=== PATIENT | female | born 1990 | race Caucasian/White ===

== ENCOUNTER 2020-05-16 08:01 | Emergency (ER) | payer OTHER, SELFPAY ==
[2020-05-16 08:17] VITALS: BP 125/82; PULSE 83; RESP 16; TEMP 36.5; O2SAT 100
--- NOTE | 2020-05-16 08:32 | ED.SKABFB ---
HPI - Skin/Abscess/Foreign Bdy General Chief complaint: Skin/Abscess/Foreign Body Stated complaint: rash Time Seen by Provider: 05/16/20 08:21 Source: patient and RN notes reviewed Mode of arrival: ambulatory Limitations: no limitations History of Present Illness HPI narrative: Patient presents today complaining of a severely pruritic rash that started on her right hand 2 days ago and has since spread to her right forearm, left forearm, anterior neck, and right flank. States that she had been handling some Stra[place] prior to onset of symptoms, but has no known exposure to poison christin, sumac, oak. She has been using hydrocortisone and Benadryl without relief. MD complaint: rash Related Data Home Medications Medication Instructions Recorded Confirmed levothyroxine 05/16/20 Allergies Allergy/AdvReac Type Severity Reaction Status Date / Time prednisone Allergy Mild RASH TO Verified 10/28/16 20:31 HANDS Review of Systems Review of Systems: Narrative: CONSTITUTIONAL: Denies body aches, fever, chills, or sweats. EYES: Denies visual changes, redness, or discharge. ENT: Denies rhinorrhea, congestion, sore throat, or otalgia. CARDIOVASCULAR: Denies chest pain, palpitations, or edema. RESPIRATORY: Denies cough or dyspnea. GASTROINTESTINAL: Denies abdominal pain, nausea, vomiting, or diarrhea. GENITOURINARY: Denies dysuria or hematuria. SKIN: Denies wounds.+ Pruritic rash MUSCULOSKELETAL: Denies back pain, joint pain, or myalgia. NEUROLOGIC: Denies headache, numbness, tingling, or weakness. PSYCH: Denies depression or anxiety. [facility] Past Medical History Medical History (Updated 05/16/20 @ 08:38 by Madalyn Salmeron, [facility], ) Hypothyroidism Social History Social History Gender identity (if verbalized by the patient): Female Comments At time of signature, I have reviewed and agree with nursing past medical, surgical, social and family history unless otherwise noted. Please see nursing chart for further information. There is no relevant family history pertinent to the presenting complaint Exam Narrative: Exam Narrative: GENERAL: Well-appearing, well-nourished, and in no acute distress. HEAD: Normocephalic, atraumatic. EYES: EOMI. No redness or drainage. Conjunctivae normal. ENT: Mucous membranes pink and moist. Nares clear. NECK: Normal AROM. Supple. No lymphadenopathy. CHEST: No respiratory distress. EXTREMITIES: Normal range of motion. No edema. SKIN: Warm, dry. Capillary refill normal. Normal skin turgor. Erythematous papular rash to the right fourth finger, right proximal hand, right forearm, left forearm, large patch to the anterior neck and right flank. No active drainage. No induration, fluctuance, or other signs of cellulitis. NEURO: No focal deficits. Alert and oriented x3. Gait steady. PSYCH: Normal affect. No signs of depression or anxiety. Course Vital Signs Vital signs: Vital Signs Temperature 97.7 F 05/16/20 08:17 Pulse Rate 83 05/16/20 08:17 Respiratory Rate 16 05/16/20 08:17 Blood Pressure 125/82 05/16/20 08:17 Pulse Oximetry 100 05/16/20 08:17 Temperature 97.7 F 05/16/20 08:17 Pulse Rate 83 05/16/20 08:17 Respiratory Rate 16 05/16/20 08:17 Blood Pressure 125/82 05/16/20 08:17 Pulse Oximetry 100 05/16/20 08:17 Reviewed. Pt has been instructed to follow up with her PCP regarding her elevated blood pressure today. MDM - Skin/Abscess/Foreign Bdy Differential Diagnosis Differential diagnosis: Likely abscess of skin or subcutaneous tissue, viral exanthem, urticaria, cellulitis, eczema, impetigo and contact dermatitis Critical Care Time Critical Care Time Critical Care Time: No Discharge Plan Discharge Clinical Impression: Contact dermatitis Qualifiers: Contact dermatitis type: unspecified Contact dermatitis trigger: unspecified trigger Qualified Code(s): L25.9 - Unspecified contact dermatitis, unspecified cause Patient Dispositi
== END 2020-05-16 08:46 | disposition home or self-care (01) ==
PROVIDERS: Emergency Provider Nurse Practitioner; PCP Family Medicine
DX: L25.9 Unspecified contact dermatitis, unspecified cause (principal); E03.9 Hypothyroidism, unspecified
CPT/HCPCS: 99213; G0463

== ENCOUNTER 2024-05-22 10:19 | Outpatient (CLI) | payer BC, SELFPAY ==
--- NOTE | ~2024-05-22 | US_ITS ---
EXAMINATION: US thyroid DATE: 05/22/2024 10:32 INDICATION: Neck swelling TECHNIQUE: Multiple ultrasound images of the thyroid were obtained. COMPARISON: None. FINDINGS: The right thyroid lobe measures 4.2 x 1.5 x 1.8 cm. The left thyroid lobe measures 5.1 x 1.5 x 1.8 c m. Coarsened echotexture and heterogeneous echogenicity throughout both thyroid lobes with pseudo no dular pattern of multiple small ill-defined regions of decreased echogenicity. There are a couple lar brian and more well-defined very hypoechoic nodules which are wider than tall with smooth margins and w ithout echogenic foci in the right thyroid lobe (TI-RADS 4, moderately suspicious , FNA if >=1.5 cm, annual followup is >=1 cm) which measure 1.3 x 1.1 x 0.5 cm and 9 x 4 x 6 mm. IMPRESSION: 1. A couple TI RADS 4 nodules in the right thyroid lobe measuring up to 1.3 cm for which annual ultra sound follow-up would be recommended. 2. Diffuse heterogeneous echogenicity and coarsened echotexture in the thyroid with pseudo nodular pa ttern suggestive of Edith's thyroiditis. Reviewed, dictated and finalized at location A. IMPRESSION: 1. A couple TI RADS 4 nodules in the right thyroid lobe measuring up to 1.3 cm for which annual ultrasound follow-up would be recommended. 2. Diffuse heterogeneous echogenicity and coarsened echotexture in the thyroid with pseudo nodular pattern suggestive of Edith's thyroiditis.
== END 2024-05-22 10:20 ==
LOC: MICIMG 10:20
PROVIDERS: PCP Nurse Practitioner; Visit Provider Advanced Practice Midwife
DX: R22.1 Localized swelling, mass and lump, neck (principal); E04.2 Nontoxic multinodular goiter
CPT/HCPCS: 76536

== ENCOUNTER 2024-08-21 15:17 | Inpatient (IN) | payer BC, SELFPAY ==
[2024-08-21] VITALS (98 sets, daily range): BP systolic 78–144; BP diastolic 35–97; PULSE 59–152; TEMP 36.6–37.2; O2SAT 79–100; BMI 29.6
[2024-08-21 16:07] LABS: Basophils Percent Auto 0.2 % (0.2-1.2); Eosinophils Percent Auto 0.3 % (0-4.4); Hematocrit 38.8 % (37.0-47.0); Hemoglobin 12.7 g/dL (12.0-15.0); Immature Granulocyte Absolute 0.08 K/mm3 (0.00-0.031); Immature Granulocyte Percent A 0.7 % (0-0.5); Lymphocytes Absolute Auto 1.69 K/mm3 (0.9-3.2); Lymphocytes Percent Auto 14.5 % (18.3-44.2); Mean Corpuscular HGB Conc 32.7 g/dl (32-36); Mean Corpuscular Hemoglobin 29.5 pg (26-34); Mean Corpuscular Volume 90.2 fl (80-100); Mean Platelet Volume 10.3 fl (7.4-10.4); Monocytes Absolute Auto 0.8 K/mm3 (0.1-0.6); Monocytes Percent Auto 6.7 % (2.6-8.5); Neutrophils Absolute Auto 9.1 K/mm3 (1.3-6.7); Neutrophils Percent Auto 77.6 % (45.5-73.1); Platelet Count Result 252 k/mm3 (150-375); Red Cell Distribution Width 17.3 % (11.5-14.5); White Blood Count 11.7 K/mm3 (4.5-10.0)
[2024-08-21] MEDS: miSOPROStol 25 MCG TABLET 50 MCG BUCCAL (16:12)
--- NOTE | 2024-08-21 16:17 | LDADM ---
This patient, Andreina Alfonso, was admitted to Labor/Delivery/Recovery 104 on 08/21/24 at 15:17. Plans for labor, pain management and were discussed with patient. Patient/family oriented to hospital policies and general routines including ID bracelet, bed and alarms, visiting hours, pain management, procedures, bathroom and other care routines, personal items, smoking policy, room service/diet and guest tray routines, security routines, and visiting hours. Patient/Family are encouraged to report perceived risks to care and to ask questions if they do not understand what they are told or what they should do. See OBIX for further documentation.
[2024-08-21 16:35] LABS: Uric Acid 5.5 mg/dL (2.5-7.5)
--- NOTE | 2024-08-21 16:39 | WPDOBADMIT ---
Obstetrics - Admit Note Admission Note: record reviewed. No pertinent additions to the history and/or any subsequent changes in the physical findings that are not consistent with the expected course of the were found. Additions to the history and/or subsequent changes in the physical findings follow. admit to ld for IOL, GHTN, oligohydramnios, hypothyroidism, ovarian cyst, plan cytotec
[2024-08-21 16:44] LABS: Rapid Plasma Reagin Non-Reactive (NonReactive)
[2024-08-21 17:01] LABS: HIV 1/2 Ab P24 Ag Result Negative (Negative)
--- NOTE | 2024-08-21 17:41 | WPDANESEPP ---
Anes - Eval Pre Procedure Procedure: Labor epidural Date/Time: 08/21/24 17:41 Preop Diagnosis: Abdominal pain with contractions Pre Op Diagnosis: IOL Patient Data Age: 33 Gender: F Height: 1.7 m Weight: 85.9 kg Last Vital Signs Temp 98.9 F 08/21/24 16:09 Pulse 91 08/21/24 17:31 BP 125/79 08/21/24 17:31 Allergies Allergy/AdvReac Type Severity Reaction Status Date / Time prednisone Allergy Mild RASH TO Verified 06/16/24 09:21 HANDS Home Medications Medication Instructions Recorded Confirmed Type cholecalciferol (vitamin D3) 50 50 mcg PO DAILY #90 tabs 06/19/21 08/21/24 Rx mcg (2,000 unit) tablet mv-mn no.97-folic 180 mcg-dha 25 1 tablet PO DAILY 12/25/23 08/21/24 History mg-herb no.293 25 mg chewable tablet (Alive Daily Support ) iron succinyl-protein complex 18 18 mg PO DAILY 06/16/24 08/21/24 History mg capsule levothyroxine 125 mcg tablet 125 mcg PO QAM 06/16/24 08/21/24 History (Synthroid) Laboratory Tests 08/21/24 15:59 WBC 11.7 H K/mm3 (4.5-10.0) RBC 4.30 M/mm3 (4.2-5.4) Hgb 12.7 g/dL (12.0-15.0) Hct 38.8 % (37.0-47.0) MCV 90.2 fl (80-100) MCH 29.5 pg (26-34) MCHC 32.7 g/dl (32-36) RDW 17.3 H % (11.5-14.5) Plt Count 252 k/mm3 (150-375) MPV 10.3 fl (7.4-10.4) Immature Gran % (Auto) 0.7 H % (0-0.5) Neut % (Auto) 77.6 H % (45.5-73.1) Lymph % (Auto) 14.5 L % (18.3-44.2) [place] % (Auto) 6.7 % (2.6-8.5) Eos % (Auto) 0.3 % (0-4.4) Baso % (Auto) 0.2 % (0.2-1.2) Lymph # (Auto) 1.69 K/mm3 (0.9-3.2) [place] # (Auto) 0.8 H K/mm3 (0.1-0.6) Eos # (Auto) 0.0 K/mm3 (0-0.3) Baso # (Auto) 0.0 K/mm3 (0.0-0.1) Abs Immat Gran (auto) 0.08 H K/mm3 (0.00-0.031) Absolute Neuts (auto) 9.1 H K/mm3 (1.3-6.7) Absolute Nucleated RBC 0.000 K/mm3 (0.0-0.012) Nucleated RBC % 0.0 % (0.0-0.2) Uric Acid 5.5 mg/dL (2.5-7.5) RPR Non-reactive (NonReactive) HIV 1&2 Ab/P24 Ag 4thGn Negative (Negative) Blood Type A Positive Antibody Screen Negative : gestational age HCG: positive Patient hx anesthesia problems: none Family hx anesthesia problems: none Results Review: All pre-operative results and documents have been reviewed as part of the pre-operative evaluation. [facility] Past Medical History Medical History Gestational diabetes Hypothyroidism Missed period Oligohydramnios Overweight (BMI 25.0-29.9) and not yet delivered Family History Family History Father Thyroid disorder Mother Thyroid disorder Social History Social History Smoking status: Never smoker Second hand tobacco smoke exposure: No Alcohol intake: current Alcohol use details: Social Substance use: never Substance use type: does not use Do You Feel Safe in your Home?: Yes Lack of Transportation: No Lack of Food: Never True Current Housing: I Have Housing Concerned About Future Housing: No Difficulty Paying Gas/Electric Bills: No Difficulty Paying for Meds: No Currently Unemployed: No Education: Master's Degree or Higher Difficulty w/ Childcare or Family Care: No Gender identity (if verbalized by the patient): Female Spiritual care concerns: No Exam Day of Procedure 08/21/24 17:41 Patient weight: overweight Airway: Mallampati scale class II
[2024-08-21] MEDS: LACTATED RINGERS 1,000 ML 999 ML IV CONT (18:22)
--- NOTE | 2024-08-21 19:00 | PM.OBPNLAB ---
Pain Control Date/time seen: 08/21/24 19:00 Comments: SVE 1/70/-2 AROM small amount of light blood tinged fluid, IUPC placed, clear in catheter, discussed category 2 tracing, if does not improve discussed section, pt agrees and will continue to monitor
[2024-08-21] MEDS: ACETAMINOPHEN 500 MG TABLET 1000 MG PO (19:55)
[2024-08-21] MEDS: MAGNESIUM SULF 4 GM/WATER100ML 4 GM/100 ML BAG IVPB (19:56)
[2024-08-21] MEDS: LACTATED RINGERS 1,000 ML 75 ML IV CONT (19:57)
[2024-08-21] MEDS: OXYTOCIN 30 UNITS/NS 500 ML 30 UNITS/500 ML BAG IV CONT (20:21)
[2024-08-21 20:24] LABS: Basophils Percent Auto 0.2 % (0.2-1.2); Eosinophils Percent Auto 0.2 % (0-4.4); Hematocrit 39.6 % (37.0-47.0); Hemoglobin 12.5 g/dL (12.0-15.0); Immature Granulocyte Absolute 0.08 K/mm3 (0.00-0.031); Immature Granulocyte Percent A 0.7 % (0-0.5); Lymphocytes Absolute Auto 1.83 K/mm3 (0.9-3.2); Lymphocytes Percent Auto 15.1 % (18.3-44.2); Mean Corpuscular HGB Conc 31.6 g/dl (32-36); Mean Corpuscular Hemoglobin 29.1 pg (26-34); Mean Corpuscular Volume 92.1 fl (80-100); Mean Platelet Volume 10.5 fl (7.4-10.4); Monocytes Absolute Auto 0.9 K/mm3 (0.1-0.6); Neutrophils Absolute Auto 9.3 K/mm3 (1.3-6.7); Neutrophils Percent Auto 76.8 % (45.5-73.1); Platelet Count Result 256 k/mm3 (150-375); Red Cell Distribution Width 17.6 % (11.5-14.5); White Blood Count 12.1 K/mm3 (4.5-10.0)
[2024-08-21 20:46] LABS: Alanine Aminotransferase 12 U/L (6-35); Albumin Level 3.3 g/dL (3.5-5.1); Alkaline Phosphatase 253 U/L (38-126); Anion Gap 7 mmol/L (4-12); Aspartate Amino Transferase 25 U/L (14-36); Bilirubin,Total 0.5 mg/dL (0.2-1.3); Blood Urea Nitrogen 6 mg/dL (7-17); Calcium 8.3 mg/dL (8.4-10.2); Carbon Dioxide 21 mmol/L (22-30); Chloride 91 mmol/L (98-107); Estimated CRCL calculation 181 ml/min; Estimated Glomerular Filt Rate > 60; Glucose 77 mg/dL (65-110); Potassium 3.4 mmol/L (3.4-5.0); Sodium 119 mmol/L (137-145)
[2024-08-21] MEDS: MAGNESIUM SULF 20GM/WATER500ML 500 ML 50 MG IV CONT (21:31)
[2024-08-21] MEDS: SODIUM CHLORIDE 0.9% IV 1,000 ML 75 ML IV CONT (21:31)
[2024-08-21] MEDS: PHENYLEPHRINE 1,000 MCG/10 ML SYRINGE 100 MCG IV PUSH (21:44)
[2024-08-21] MEDS: ONDANSETRON INJ 4 MG/2 ML VIAL IV PUSH (21:44)
[2024-08-22] VITALS (153 sets, daily range): BP systolic 79–133; BP diastolic 54–89; PULSE 76–200; RESP 14–20; TEMP 36.2–38.2; O2SAT 84–100
[2024-08-22] MEDS: miSOPROStol 200 MCG TABLET 1000 MCG (01:19)
[2024-08-22] MEDS: OXYTOCIN 30 UNITS/NS 500 ML 30 UNITS/500 ML BAG 125 UNITS IV CONT (01:37)
--- NOTE | 2024-08-22 01:42 | PM.OBPRVD ---
OB - Vaginal Delivery Note Procedure Delivery date: 08/22/24 Events: Preeclampsia w severe features Induction method: AROM, Per Misoprostol Protocol and Per Pitocin Protocol Delivery monitor: External FHT and Internal Uterine Route of delivery: Episiotomy description: None Laceration Description: Perineal - 2nd Degree and Labial (right) Delivery repair: vicryl Specimen: No Quantitative Blood Loss (ml): 1,413 Anesthesia type: Epidural Disposition: Floor Narrative: bleeding from perineal laceration, once controlled vaginal sweep and multiple clots. cytotec rectally given. bleeding slowly continued, weight of towls after repair complete, fundus then firm at umbilicus. pt in stable condition, labs obtained [place] Baby Date of : 08/22/24 Time of : 01:01 Gestational Age by Date: 38 Infant gender: Male Weight (pounds): 7 Weight (ounces): 9 presentation: vertex position: Right Occiput Anterior Placenta delivery description: Spontaneous Cord Vessel Description: 3 Vessels, Nuchal Cord (x1), Reduced and Delayed Cord Clamping score one minute: 9 score five minutes: 9
[2024-08-22 01:48] LABS: Basophils Percent Auto 0.2 % (0.2-1.2); Eosinophils Percent Auto 0.1 % (0-4.4); Hematocrit 35.3 % (37.0-47.0); Hemoglobin 11.4 g/dL (12.0-15.0); Immature Granulocyte Percent A 0.6 % (0-0.5); Lymphocytes Absolute Auto 1.54 K/mm3 (0.9-3.2); Lymphocytes Percent Auto 8.5 % (18.3-44.2); Mean Corpuscular HGB Conc 32.3 g/dl (32-36); Mean Corpuscular Hemoglobin 29.8 pg (26-34); Mean Corpuscular Volume 92.2 fl (80-100); Mean Platelet Volume 9.9 fl (7.4-10.4); Monocytes Absolute Auto 1.2 K/mm3 (0.1-0.6); Monocytes Percent Auto 6.8 % (2.6-8.5); Neutrophils Absolute Auto 15.2 K/mm3 (1.3-6.7); Neutrophils Percent Auto 83.8 % (45.5-73.1); Platelet Count Result 254 k/mm3 (150-375); Red Blood Count 3.83 M/mm3 (4.2-5.4); Red Cell Distribution Width 17.3 % (11.5-14.5); White Blood Count 18.1 K/mm3 (4.5-10.0)
[2024-08-22 01:58] LABS: INR 0.9; Prothrombin Time 12.9 Seconds (11.1-14.7)
[2024-08-22 01:59] LABS: Partial Thromboplastin Time 22.7 Seconds (22.3-36.8)
[2024-08-22 02:00] LABS: Fibrinogen 438 mg/dl (215-510)
[2024-08-22 02:12] LABS: Magnesium 4.5 mg/dL (1.6-2.3)
--- NOTE | 2024-08-22 04:35 | PC.NURSE ---
RN and ekg tech, Lana Duque, assisted pt to bedside commode. Pt stated she felt lightheaded. Pt appeared to pass out. Called for assistance. Alex West RN and Adamaris Collins RN came to room to assist. VS obtained, NS bolus started. Pt aroused and talking, then appeared to pass out again. Pt aroused, A & O x3, and assisted to bed. Labwork drawn, food and water provided to pt. VS WNL.
[2024-08-22] MEDS: BENZOCAINE 20% AER SPR (*SP) 56 GM CAN 1 SPRAY TOPICAL (04:58)
[2024-08-22] MEDS: WITCH HAZEL 40 PADS 1 PAD TOPICAL (04:58)
[2024-08-22] MEDS: ONDANSETRON INJ 4 MG/2 ML VIAL IV PUSH (04:58)
[2024-08-22 05:03] LABS: Basophils Absolute Auto 0.1 K/mm3 (0.0-0.1); Basophils Percent Auto 0.2 % (0.2-1.2); Hematocrit 29.9 % (37.0-47.0); Hemoglobin 9.9 g/dL (12.0-15.0); Immature Granulocyte Absolute 0.15 K/mm3 (0.00-0.031); Immature Granulocyte Percent A 0.6 % (0-0.5); Lymphocytes Absolute Auto 1.56 K/mm3 (0.9-3.2); Lymphocytes Percent Auto 6.3 % (18.3-44.2); Mean Corpuscular HGB Conc 33.1 g/dl (32-36); Mean Corpuscular Hemoglobin 30.1 pg (26-34); Mean Corpuscular Volume 90.9 fl (80-100); Mean Platelet Volume 10.1 fl (7.4-10.4); Monocytes Absolute Auto 1.2 K/mm3 (0.1-0.6); Neutrophils Absolute Auto 21.7 K/mm3 (1.3-6.7); Neutrophils Percent Auto 87.9 % (45.5-73.1); Platelet Count Result 215 k/mm3 (150-375); Red Blood Count 3.29 M/mm3 (4.2-5.4); Red Cell Distribution Width 17.2 % (11.5-14.5); White Blood Count 24.7 K/mm3 (4.5-10.0)
[2024-08-22 05:21] LABS: Alanine Aminotransferase 14 U/L (6-35); Albumin Level 2.7 g/dL (3.5-5.1); Alkaline Phosphatase 192 U/L (38-126); Anion Gap 8 mmol/L (4-12); Aspartate Amino Transferase 38 U/L (14-36); Bilirubin,Total 0.7 mg/dL (0.2-1.3); Blood Urea Nitrogen 7 mg/dL (7-17); Calcium 7.3 mg/dL (8.4-10.2); Carbon Dioxide 19 mmol/L (22-30); Chloride 98 mmol/L (98-107); Estimated CRCL calculation 149 ml/min; Estimated Glomerular Filt Rate > 60; Glucose 131 mg/dL (65-110); Potassium 3.6 mmol/L (3.4-5.0); Sodium 125 mmol/L (137-145)
[2024-08-22 05:28] LABS: Platelet Estimate Adequate (Adequate)
[2024-08-22 05:29] LABS: Anisocytosis 1+; Hypochromasia 1+; Schistocytes None Seen; Smudge Cells PRESENT
--- NOTE | 2024-08-22 05:50 | PC.NURSE ---
Updated Dani Smith CNM on HGB and pt status. Orders received for 1 unit PRBC.
[2024-08-22] MEDS: MAGNESIUM SULF 20GM/WATER500ML 500 ML 50 MG IV CONT (06:08)
[2024-08-22] MEDS: SODIUM CHLORIDE 0.9% IV 250 ML 30 ML IV CONT (06:19)
[2024-08-22] MEDS: ACETAMINOPHEN 325 MG TABLET 650 MG PO ×2 (06:25→16:03)
[2024-08-22] MEDS: TUBING, BLOOD PLUM PUMP TUBING 1 EACH XX (06:39)
[2024-08-22] MEDS: LEVOTHYROXINE SODIUM 125 MCG TABLET PO (07:07)
--- NOTE | 2024-08-22 09:01 | PC.NURSE ---
0830: RN reviewed patient's fluid volume received on JAN, RN began bolus of sodium chloride for fluid replacement after post hemorrhage. Fluid bolus was continued when patient was moved to the post . 0849: Patient in post bed. JO ANN Chatterjee completed vital signs and fundal check on patient due to post nurse being unavailable at the time. Patient states she is feeling much better after the liter of blood. Uterus was firm 2 below with scant bleeding. Ice pack was given and placed on patient's back due to soreness from the epidural. RN reported fluid bolus status, fundal check, and vital signs to post nurse Ning Arguello.
[2024-08-22] MEDS: DOCUSATE SODIUM 100 MG CAPSULE PO ×2 (10:06→16:03)
[2024-08-22] MEDS: POLYSACCHARIDE IRON COMPLEX 150 MG CAPSULE PO ×2 (10:06→16:03)
[2024-08-22] MEDS: MULTIVIT/MIN/PREN/FOL AC/IRON TABLET 1 TAB PO (10:07)
[2024-08-22] MEDS: IBUPROFEN 600 MG TABLET PO ×2 (10:12→20:17)
[2024-08-22 14:02] LABS: Basophils Percent Auto 0.2 % (0.2-1.2); Eosinophils Percent Auto 0.1 % (0-4.4); Hematocrit 29.5 % (37.0-47.0); Hemoglobin 10.1 g/dL (12.0-15.0); Immature Granulocyte Absolute 0.09 K/mm3 (0.00-0.031); Immature Granulocyte Percent A 0.5 % (0-0.5); Lymphocytes Absolute Auto 1.67 K/mm3 (0.9-3.2); Lymphocytes Percent Auto 8.9 % (18.3-44.2); Mean Corpuscular HGB Conc 34.2 g/dl (32-36); Mean Corpuscular Hemoglobin 30.4 pg (26-34); Mean Corpuscular Volume 88.9 fl (80-100); Monocytes Absolute Auto 1.1 K/mm3 (0.1-0.6); Monocytes Percent Auto 5.6 % (2.6-8.5); Neutrophils Absolute Auto 15.9 K/mm3 (1.3-6.7); Neutrophils Percent Auto 84.7 % (45.5-73.1); Platelet Count Result 186 k/mm3 (150-375); Red Blood Count 3.32 M/mm3 (4.2-5.4); Red Cell Distribution Width 17.6 % (11.5-14.5); White Blood Count 18.7 K/mm3 (4.5-10.0)
[2024-08-22 14:12] LABS: Alanine Aminotransferase 14 U/L (6-35); Albumin Level 2.8 g/dL (3.5-5.1); Alkaline Phosphatase 137 U/L (38-126); Anion Gap 4 mmol/L (4-12); Aspartate Amino Transferase 38 U/L (14-36); Bilirubin,Total 0.6 mg/dL (0.2-1.3); Blood Urea Nitrogen 6 mg/dL (7-17); Calcium 7.9 mg/dL (8.4-10.2); Carbon Dioxide 23 mmol/L (22-30); Chloride 105 mmol/L (98-107); Estimated CRCL calculation 149 ml/min; Estimated Glomerular Filt Rate > 60; Glucose 112 mg/dL (65-110); Potassium 3.9 mmol/L (3.4-5.0); Sodium 132 mmol/L (137-145)
--- NOTE | 2024-08-22 14:34 | OBPPTRN ---
Patient transferred to post room #292 via (wheelchair). Support person present. Oriented to unit, room, information board, rooming in, admission packet and security measures. Patient verbalizes understanding.
[2024-08-22] MEDS: miSOPROStol 200 MCG TABLET 1000 MCG RECTAL (19:45)
[2024-08-22] MEDS: HYDROcodone/acetaminophen (*CRX) 5-325 MG TABLET 1 TAB PO (20:22)
[2024-08-23] VITALS (7 sets, daily range): BP systolic 99–122; BP diastolic 64–76; PULSE 83–99; RESP 16–18; TEMP 36.2–37.3; O2SAT 96–100
[2024-08-23 05:54] LABS: Hematocrit 29.5 % (37.0-47.0); Hemoglobin 9.7 g/dL (12.0-15.0)
[2024-08-23] MEDS: IBUPROFEN 600 MG TABLET PO ×2 (07:40→16:59)
[2024-08-23] MEDS: MULTIVIT/MIN/PREN/FOL AC/IRON TABLET 1 TAB PO (07:40)
[2024-08-23] MEDS: DOCUSATE SODIUM 100 MG CAPSULE PO ×2 (07:41→16:59)
[2024-08-23] MEDS: POLYSACCHARIDE IRON COMPLEX 150 MG CAPSULE PO ×2 (07:41→17:00)
[2024-08-23] MEDS: LEVOTHYROXINE SODIUM 125 MCG TABLET PO (07:42)
--- NOTE | 2024-08-23 08:36 | P.PNOB_ITS ---
OB - PN: Subj Subjective Date/time seen: 08/23/24 08:36 Patient comments: no complaints, pain well controlled, incisional pain, tolerating diet and flatus present OB - PN: Obj Data Labs 08/23/24 05:49 08/22/24 13:41 Labs: Laboratory Results - last 24 hr 08/22/24 08/23/24 13:41 05:49 WBC 18.7 H RBC 3.32 L Hgb 10.1 L 9.7 L Hct 29.5 L 29.5 L MCV 88.9 MCH 30.4 MCHC 34.2 RDW 17.6 H Plt Count 186 MPV 10.0 Immature Gran % (Auto) 0.5 Neut % (Auto) 84.7 H Lymph % (Auto) 8.9 L [place] % (Auto) 5.6 Eos % (Auto) 0.1 Baso % (Auto) 0.2 Lymph # (Auto) 1.67 [place] # (Auto) 1.1 H Eos # (Auto) 0.0 Baso # (Auto) 0.0 Abs Immat Gran (auto) 0.09 H Absolute Neuts (auto) 15.9 H Absolute Nucleated RBC 0.000 Nucleated RBC % 0.0 Sodium 132 L Potassium 3.9 Chloride 105 Carbon Dioxide 23 Anion Gap 4 BUN 6 L Creatinine 0.50 L Estim Creat Clear Calc 149 Estimated GFR > 60 Glucose 112 H Calcium 7.9 L Total Bilirubin 0.6 AST 38 H ALT 14 Alkaline Phosphatase 137 H Total Protein 5.0 L Albumin 2.8 L OB - PN A/P Assessment and Plan (1) hemorrhage: Code(s): O72.1 - Other immediate hemorrhage Status: Acute (2) Preeclampsia, severe: Code(s): O14.10 - Severe pre-eclampsia, unspecified trimester Status: Acute Assessment and Plan: Preeclampsia resolving, normal vital signs and reasonable hemoglobin for hemorrhage. No further treatment. Plan day: 1 Plan: routine care Comments: No problems, routine care Time Spent With Patient Time: Total time spent is greater than 50% in coordination of care (as documented) at patient's floor/unit and/or counseling patient: Exam Const: General: comfortable, no acute distress and alert Resp: Effort & Inspection: normal respiratory effort Auscultation: no crackles, no rales and no rhonchi Cardio: Rate: regular rate Heart sounds: no click, no murmurs and no rubs GI: Inspection: non-distended GI Palp: No Tenderness to palpation present (GI) Auscultation: normal bowel sounds Other: Incision - CDI Extrem: General: normal to inspection, no pedal edema and no calf tenderness
[2024-08-23] MEDS: ACETAMINOPHEN 325 MG TABLET 650 MG PO (14:28)
[2024-08-23] MEDS: WITCH HAZEL 40 PADS 1 PAD TOPICAL (16:58)
[2024-08-24 00:30] VITALS: BP 111/72; PULSE 98
[2024-08-24] MEDS: IBUPROFEN 600 MG TABLET PO ×2 (00:30→08:06)
[2024-08-24 05:50] VITALS: BP 114/74; PULSE 96
[2024-08-24] MEDS: LEVOTHYROXINE SODIUM 125 MCG TABLET PO (06:35)
[2024-08-24 07:50] VITALS: BP 108/73; PULSE 93; RESP 16; TEMP 36.9; O2SAT 99
[2024-08-24] MEDS: MULTIVIT/MIN/PREN/FOL AC/IRON TABLET 1 TAB PO (08:06)
[2024-08-24] MEDS: DOCUSATE SODIUM 100 MG CAPSULE PO (08:06)
[2024-08-24] MEDS: POLYSACCHARIDE IRON COMPLEX 150 MG CAPSULE PO (08:06)
--- NOTE | 2024-08-24 08:39 | PM.OBPNVD ---
OB - PN: Subj Subjective Date/time seen: 08/24/24 08:39 Patient comments: no complaints, pain well controlled and tolerating diet OB - PN: Obj Data Labs 08/23/24 05:49 08/22/24 13:41 OB - PN A/P Plan day: 2 Plan: routine care and discharge home Time Spent With Patient Time: Total time spent is greater than 50% in coordination of care (as documented) at patient's floor/unit and/or counseling patient: Exam Const: General: comfortable and no acute distress Resp: Effort & Inspection: normal respiratory effort Auscultation: no rales, no rhonchi and no wheezes Cardio: Rate: regular rate Heart sounds: no click, no murmurs and no rubs GI: GI Palp: Yes Soft to palpation and No Tenderness to palpation present (GI) Auscultation: normal bowel sounds Extrem: General: normal to inspection, no pedal edema and no calf tenderness
--- NOTE | 2024-08-24 08:42 | PM.OBDSVD ---
DS: Admitting Diagnosis Discharge Date August 27, 2024 Admitting Diagnosis term DS: Discharge Diagnosis Discharge Diagnosis (1) Post term , delivered: Code(s): O48.0 - Post-term Status: Acute OB - DS: Summary OB Procedures : None OB Procedures Intrapartum: Spontaneous Vag Delivery OB Procedures: : None Peripartum Data Laceration Description: Perineal - 2nd Degree and Labial (right) Episiotomy description: None Time Spent with Patient Time attestation: Total time spent providing and/or coordinating discharge services: Discharge Plan Discharge Discharging Clinician: Gerard Woodson Patient Disposition: Home, Self-Care Activity: pelvic rest Diet: regular Patient Instructions: Antibiotic Form Stand Alone Forms: General Discharge Information Follow-up/Referrals: Gerard Woodson MD [Physician] - Discharge Medications: Continued levothyroxine [Synthroid] 125 mcg tablet 125 mcg PO QAM iron succinyl-protein complex 18 mg capsule 18 mg PO DAILY cholecalciferol (vitamin D3) 50 mcg (2,000 unit) tablet 50 mcg PO DAILY Qty: 90 1RF Alive Daily Support 180 mcg-25 mg- 25 mg tablet,chewable 1 tablet PO DAILY 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
--- NOTE | 2024-08-24 10:20 | PC.NURSE ---
Consulted with patient to assess needs related to . Discussed with mother her successes, concerns and any questions she has. Mom has 'excruciating' pain with latch and is not able to tolerate feedings even with the nipple shield. We reviewed working with the infant, supporting breast, protecting her nipples with an optimal deep latch, good positioning. We attempted to latch baby to the left breast in cross cradle hold. Mom has firm tissue and a flatter nipple, but baby was able to get a good deep latch. After 2-3 sucks, mom was not able to tolerate the latch and we broke suction. Mom was crying with the pain of nursing and we discussed her ultimate goals for feeding baby. She is happy to pump and bottle feed. We discussed that her being miserable and in pain at every feeding isn't feasible for any length of time. If she has tethers that keep her nipple from everting more, they could potentially stretch with pumping and she could try to put baby back to breast in the future if desired. Encouraged consistent pumping routine with frequencies of 8 times in 24 hours (approximately 2-3 hours); educated parents on milk production, pumping log and pumping handouts for maintaining a sufficient supply with her pump. She did have a very significant blood loss and received 1 unit of blood, so she knows that her milk production could be delayed or reduced due to that blood loss. Nipple care reviewed with lanolin, drying breastmilk on the nipple, and hydrogel pads (given). Resources used to facilitate learning were used from the [visual handouts/mom and baby guide]. She has the outpatient phone number and will call for further assistance after discharge as needed. Mother voiced understanding of the education shared, to call for assistance if needed. Reported to the Primary RN.
--- NOTE | 2024-08-24 11:02 | PC.NURSE ---
Patient instructed on viewing the discharge video Mother & Baby Care, The First Two Weeks . Patient was given the opportunity and encouraged to ask questions. Patient verbalized understanding of information shared and has been given the mother/baby guide for home reference.
[2024-08-25 11:32] VITALS: BP 115/78; PULSE 99; RESP 18; TEMP 36.6; O2SAT 100
== END 2024-08-24 12:15 | disposition home or self-care (01) | DRG 806 ==
LOC: ANHLDR 15:20 → ANHOB2 08-22 08:46
PROVIDERS: Advanced Practice Midwife; Admitting Provider Obstetrics & Gynecology; PCP Nurse Practitioner Family; Visit Provider Obstetrics & Gynecology
DX: O14.14 Severe pre-eclampsia complicating childbirth (principal); O41.03X0 Oligohydramnios, third trimester, not applicable or unspecified; Z37.0 Single live birth; Z3A.39 39 weeks gestation of pregnancy; O72.1 Other immediate postpartum hemorrhage; O70.1 Second degree perineal laceration during delivery; O13.4 Gestational [pregnancy-induced] hypertension without significant proteinuria, complicating childbirth; O69.81X0 Labor and delivery complicated by cord around neck, without compression, not applicable or unspecified; O99.284 Endocrine, nutritional and metabolic diseases complicating childbirth; E03.9 Hypothyroidism, unspecified; O34.83 Maternal care for other abnormalities of pelvic organs, third trimester; N83.209 Unspecified ovarian cyst, unspecified side
CPT/HCPCS: 36415; 36430; 80053; 83735; 84550; 85014; 85018; 85025; 85384; 85610; 85730; 86592; 86703; 86850; 86900; 86901; 86923; A9270; G0432; J2003; J2371; J2405; J2590; J2795; J3475; J7030; J7050; J7120; P9016

== ENCOUNTER 2024-10-14 01:27 | Day surgery (SDC) | payer BC, SELFPAY ==
[2024-10-08 12:57] VITALS: BMI 26.5
--- NOTE | 2024-10-08 13:04 | PC.NURSE ---
Report to the Outpatient Waiting Room, entrance under the green pavilion located off [facility], at time _0700_ on date _[id number]_. Planned Procedure Time: _0900_.? Time changes happen often and if your time is changed the preop area will call you the afternoon before. - You and your visitor will be asked to self-screen and do not enter if you have any COVID symptoms. Please call surgeon if you need to reschedule. - A mask is optional within the hospital at this time. Patients may have clear liquids (water, carbonated beverages, clear teas, apple juice) until 3 hours prior to surgery with a maximum of 20 ounces. - No food from midnight until time of surgery and no smoking. This includes no chewing gum, candy or mints. Take only the following medications with a SIP of water on the morning of surgery: __Levothyroxine DO NOT STOP ANY OF YOUR OTHER PRESCRIPTION MEDICATIONS PRIOR TO SURGERY EXCEPT THE FOLLOWING Medications to discontinue per physician ____Vitamins__ Date to take last bvmg__[id number] Please no make-up, nail czech, hairspray, perfume, deodorant, or body powder the day of surgery.? No jewelry (including any body piercings) or valuables the day of surgery, leave them at home.? Please take a shower or bath the night before, or the morning of, surgery with an antibacterial soap.? Wear comfortable, loose fitting clothing.? - Jewelry must be removed prior to entering the operating room.? Rings and piercings that are not removed may be cut off. - The hospital will not accept responsibility for valuables.? - Please leave all valuables, including medications, at home the day of surgery. If you are going home after surgery, a licensed cab driver must drive you home.? - NO public transportation without another adult if you receive anesthesia. - We recommend that an adult stay with you for 24 hours following discharge. - We also recommend that you do not drive, make important decision, drink alcoholic beverages, or take any drugs that were not prescribed by your health care provider for at least 24 hours after your discharge time. Follow any additional instructions given to you from your surgeon. Telephone instructions given to __Andreina__and asked if any additional questions and then verbalized understanding. Patient advised to call surgeon office or pre surgery nurse liaison [phone] if any additional questions.
[2024-10-14] VITALS (10 sets, daily range): BP systolic 102–124; BP diastolic 62–92; PULSE 76–120; RESP 12–18; TEMP 36.5–36.8; O2SAT 95–100; BMI 25.6
[2024-10-14] MEDS: LACTATED RINGERS 1,000 ML 30 ML IV CONT ×2 (07:30→09:52)
--- NOTE | 2024-10-14 07:42 | ECG_ITS ---
Test Date: 2024-10-14 08:28:14 Measurements Intervals [place] Rate: 94 P: 28 CO: 118 QRS: 58 QRSD: 97 T: 56 QT: 357 QTc: 448 Interpretive Statements SINUS RHYTHM INCOMPLETE RIGHT BUNDLE BRANCH BLOCK No previous ECG available for comparison Electronically Signed On 10-14-2024 18:58:08 ART PREPARATOR by Azra Patel
[2024-10-14 07:50] LABS: BEDSIDEPREGUCG Negative (Negative)
[2024-10-14] MEDS: ACETAMINOPHEN 500 MG TABLET 1000 MG PO (08:04)
[2024-10-14] MEDS: KETOROLAC 15 MG/ML VIAL (*BKC) IV PUSH (08:04)
--- NOTE | 2024-10-14 08:11 | P.PNAN_ITS ---
Anes - Initial Pre Proc Eval Procedure: Operation Date: 10/14/24 09:30 Proposed Procedures p Laparoscopic Left Ovarian Cystectomy - Gerard Woodson MD Date/Time: 10/14/24 08:11 Surgeon: Gerard Woodson MD Pre Op Diagnosis: cyst left ovary Patient Data Age: 33 Gender: F Height: 1.68 m Weight: 74.5 kg Allergies Allergy/AdvReac Type Severity Reaction Status Date / Time No Known Allergies Allergy Verified 10/14/24 07:47 Home Medications ?Medication ?Instructions ?Recorded ?Confirmed ?Type cholecalciferol (vitamin D3) 50 50 mcg PO DAILY #90 tabs 06/19/21 10/14/24 Rx mcg (2,000 unit) tablet mv-mn no.97-folic 180 mcg-dha 25 1 tablet PO DAILY 12/25/23 10/14/24 History mg-herb no.293 25 mg chewable tablet (Alive Daily Support ) levothyroxine 125 mcg tablet 125 mcg PO QAM 06/16/24 10/14/24 History (Synthroid) Laboratory Tests 10/14/24 07:48 POC Urine HCG, Qual Negative (Negative) Patient hx anesthesia problems: none Family hx anesthesia problems: none Results Review: All pre-operative results and documents have been reviewed as part of the pre- operative evaluation. [facility] Past Medical History Medical History Post term , delivered Preeclampsia, severe hemorrhage Oligohydramnios Overweight (BMI 25.0-29.9) Gestational diabetes and not yet delivered Missed period Hypothyroidism Family History Family History Father Thyroid disorder Mother Thyroid disorder Social History Social History Smoking status: Never smoker Second hand tobacco smoke exposure: No Alcohol intake: current Alcohol use details: Social Substance use: never Substance use type: does not use Do You Feel Safe in your Home?: Yes Lack of Transportation: No Lack of Food: Never True Current Housing: I Have Housing Concerned About Future Housing: No Difficulty Paying Gas/Electric Bills: No Difficulty Paying for Meds: No Currently Unemployed: No Education: Master's Degree or Higher Difficulty w/ Childcare or Family Care: No Living arrangements: with family Gender identity (if verbalized by the patient): Female Spiritual care concerns: No Anes - Eval Final PreProcedure Day of Procedure 10/14/24 08:11 Patient weight: overweight Heart: tachycardia Lungs: clear to auscultation Airway: Mallampati scale class II Neurological: alert and oriented Last oral intake: >/= 8 hours ASA classification: II Emergent: no Anesthetic plan: proceed Anesthesia type and monitoring: general ETT and standard monitoring Results Review: All pre-operative results and documents have been reviewed as part of the pre- operative evaluation. Informed Consent: The patient's anesthetic plan and its attendant risks and benefits were discussed with the patient/family/POA. Questions were solicited and answers provided to the satisfaction of the patient/family/POA.
--- NOTE | 2024-10-14 08:41 | PM.OBTRLD ---
OB - Triage/Final Diagnosis Visit Information Comments/Additional reasons for admission: I have assessed the risk for this patient, Andreina Alfonso, and determined that she would benefit from observation care. Evaluation Laboratory results: Laboratory Tests 10/14/24 07:48 POC Urine HCG, Qual Negative Vital signs: Vital Signs - 24 hr 10/14/24 08:07 10/14/24 08:35 Temperature 98.2 F Pulse Rate 120 H 98 Respiratory Rate 18 Blood Pressure 104/73 Pulse Oximetry 98 Oxygen Delivery Room Air
--- NOTE | 2024-10-14 09:31 | SUR.OPER ---
Specimen is left falopian tube and left ovarian cyst
--- NOTE | 2024-10-14 09:51 | W.PM.PROC2 ---
Procedure Note - Detailed Date of Procedure 10/14/24 Pre-op Diagnosis cyst left ovary Post-op Diagnosis Same ( Cystic mass) Procedure Performed laparoscopic left salpingo-oophorectomy with resection of pelvic mass. Surgeon Gerard Woodson MD Anesthesia General Indications Pelvic pain Findings Very large left ovarian cyst, likely 9-11 cm. Normal right fallopian tube and ovary. The fallopian tube on the left was stretched out over the ovarian cyst. Cyst had the appearance of a cystic mass. Description of Procedure The patient was taken to the operating room. She was prepped and draped in the dorsal lithotomy position after induction general anesthesia. A 5 mm incision was made with a scalpel on the abdominal skin in the left upper quadrant of the abdomen. A 5 mm trocar was inserted into the intra-abdominal cavity under direct visualization the scope. In the same fashion a 5 mm left lower quadrant trocar was inserted and a 5 mm infraumbilical trocar was inserted. decision was made to perform left salpingo-oophorectomy due to the size of the ovarian cyst and its appearance. The left lower quadrant trocar was changed out for a 15 mm trocar. The skin incision was expanded. The large endobag was placed in the pelvis and the cyst was placed inside of it. The open bag was drawn out of the left lower quadrant incision. The cyst was drained. The ovary tube and cyst were removed with ring forceps. Pelvic washings were then obtained using aspirated. The left lower quadrant trocar site fascia was closed with the Jeremias-Denzel under August is again 0 Vicryl. The pelvis was irrigated. The pneumoperitoneum was reduced. The trocars were removed. Skin was closed with subcuticular 4 micro. The patient's incisions were covered with Dermabond. She was taken recovery room in stable condition. Sponge lap and needle counts were correct x2. Estimated Blood Loss 10 Complications No immediate complications Condition Stable Disposition Same day
[2024-10-14] MEDS: fentaNYL CITRATE INJ (*CRX) 100 MCG/2 ML VIAL 25 MCG IV PUSH ×4 (10:14→10:23)
[2024-10-14] MEDS: oxyCODONE HCL (*CRX) 5 MG TAB IR PO (11:07)
== END 2024-10-14 11:48 | disposition home or self-care (01) ==
PROVIDERS: Anesthesiology; PCP Nurse Practitioner Family; Visit Provider Obstetrics & Gynecology
PROC: (CPT 49320; principal; 2024-10-14 09:30)
DX: D27.1 Benign neoplasm of left ovary (principal); E03.9 Hypothyroidism, unspecified; F41.9 Anxiety disorder, unspecified; I45.10 Unspecified right bundle-branch block; G89.18 Other acute postprocedural pain; Z98.890 Other specified postprocedural states; Z80.0 Family history of malignant neoplasm of digestive organs
CPT/HCPCS: 58661; 88108; 88305; 93005; A9270; J0330; J1100; J1885; J2003; J2250; J2405; J2704; J3010; J7120

== ENCOUNTER 2025-07-01 12:50 | Outpatient (CLI) | payer BC, SELFPAY ==
--- NOTE | ~2025-07-01 | US_ITS ---
EXAMINATION: US thyroid DATE: 07/01/2025 13:13 INDICATION: Nontoxic single thyroid nodule TECHNIQUE: Multiple ultrasound images of the thyroid were obtained. COMPARISON: 05/22/2024 FINDINGS: The right thyroid lobe measures 5.3 x 2.0 x 2.1 cm. The left thyroid lobe measures 6.2 x 1.8 x 2.2 cm. There is heterogeneous echogenicity with coarsened echotexture throughout the thyroid is also diffuse increased vascular flow throughout the thyroid on color Doppler. The decreased echogenicity has a pseudonodular appearance suggestive of Edith's/lymphocytic thyroiditis. There are couple solid very hypoechoic nodules with smooth margins and without echogenic foci in the right thyroid lobe. (TI-RADS 4, moderately suspicious , FNA if >=1.5 cm, annual followup is >=1 cm), the larger and more superficial measuring 1.5 cm in maximal diameter and a smaller 6 mm nodule along the deep lateral margin of the larger nodule. 7 mm TI RADS 4 with similar imaging features in the left thyroid lobe. IMPRESSION: 1. Enlarged thyroid with heterogeneous echogenicity with similar nodular pattern and diffuse increased flow on color Doppler suggestive of Edith's/lymphocytic thyroiditis. 2. A few TI-RADS 4 nodules, the largest in the right thyroid lobe measuring 1.5 cm which is at the borderline for recommendation for ultrasound-guided biopsy. Could consider either biopsy or annual ultrasound follow-up. Reviewed, dictated and finalized at location A. IMPRESSION: 1. Enlarged thyroid with heterogeneous echogenicity with similar nodular patter n and diffuse increased flow on color Doppler suggestive of Edith's/lymphoc ytic thyroiditis. 2. A few TI-RADS 4 nodules, the largest in the right thyroid lobe measuring 1.5 cm which is at the borderline for recommendation for ultrasound-guided biopsy. Could consider either biopsy or annual ultrasound follow-up.
== END 2025-07-01 12:51 | disposition home or self-care (01) ==
LOC: MICIMG 12:51
PROVIDERS: PCP Nurse Practitioner Family; Visit Provider Nurse Practitioner Family
DX: E04.8 Other specified nontoxic goiter (principal); E04.2 Nontoxic multinodular goiter
CPT/HCPCS: 76536

== ENCOUNTER 2025-07-29 02:51 | Day surgery (SDC) | payer BC, SELFPAY ==
[2025-07-29] VITALS (18 sets, daily range): BP systolic 68–131; BP diastolic 35–98; PULSE 60–95; RESP 12–18; TEMP 36.2–36.9; O2SAT 98–100
--- NOTE | ~2025-07-29 | US_ITS ---
EXAMINATION: US OB <=14 wk fetus w TV DATE: 07/29/2025 05:46 INDICATION: Bleeding during first trimester with concern for either miscarriage or ectopic TECHNIQUE: Real-time pelvic ultrasound utilizing both a transvaginal and transabdominal probe was performed. The interpreting radiologist was not present for the study. COMPARISON: None. FINDINGS: The uterus measures 9.7 x 5.9 x 6.4 cm. There is a 2.2 cm diameter loculated fluid collection within the endocervical canal with internal thin linear membrane and 2-3. Echogenic debris without a clearly defined yolk sac or pole nonetheless suspicious for a gestational sac during an in lidia rodriguez. The endometrial complex at the uterine fundus measures 10 mm in thickness. Posterior to the endometrial complex is an irregular hypoechoic region which could represent hematoma. The right ovary measures 3.8 x 2.4 x 2.2 cm. There is an 11 mm anechoic likely corpus luteum cyst in the right ovary. The left ovary is not visualized and reportedly surgically absent. There is a small amount of anechoic free fluid along the right side of the uterus. IMPRESSION: 1. No evident viable intrauterine . There is a 2.2 cm loculated fluid collection with thin internal membrane and small amount of hypoechoic debris within the endocervical canal which is suspicious for a gestational sac in setting of and in progress. Reviewed, dictated and finalized at location A. IMPRESSION: 1. No evident viable intrauterine . There is a 2.2 cm loculated fluid collection with thin internal membrane and small amount of hypoechoic debris wi thin the endocervical canal which is suspicious for a gestational sac in settin g of and in progress.
--- OUTSIDE RECORDS SUMMARY | 2025-07-29 02:53 | XMS_ITS | Clinical Summary ---
Author Organization [facility] Address [address] [place] [address] Phone Care Team Providers Care Track Laying Supervisor Name Role Phone KnadiceTcGerrad Primary Care Provider [phone] Brissa Alvarez MD Unavailable Medications levothyroxine (SYNTHROID) 137 MCG Tablet TAKE 1 TABLET BY MOUTH DAILY 90 Tablet 04/01/2025 Active Social History Tobacco Use Types Packs/Day Years Used Date Smoking Tobacco: Never Passive Smoke Exposure: Never Tobacco Cessation:Counseling Given: No Alcohol Use Standard Drinks/Week Comments Never 0 (1 standard drink = 0.6 oz pur e alcohol) Sexually Active Control Partners Comments Yes Male Comments Unknown Sex and Gender Information Value Date Recorded Sex Assigned at Not on file 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 Gender Identity Not on file Sexual Orientation Not on file Last Filed Vital Signs Vital Sign Reading Time Taken Comments Blood Pressure 140/87 07/15/2024 2:50 PM CDT Pulse 105 07/15/2024 2:50 PM CDT Temperature 36.5 C (97.7 F) 07/15/2024 2:50 PM CDT Respiratory Rate 20 07/15/2024 2:50 PM CDT Oxygen Saturation 99% 07/15/2024 2:50 PM CDT Inhaled Oxygen Concentration - - Weight 80.3 kg (177 lb) 07/15/2024 2:50 PM CDT Height - - Body Mass Index - - Plan of Treatment Health Maintenance Due Date Last Done Comments Hepatitis C Virus (HCV) Screening 1989 Hepatitis B Immunization (1 of 3 - 19+ 3-dose series) 2008 Pap Smear 2010 Human Papillomavirus (HPV) Immunization (1 - 3-dose SCDM series) 2016 Cervical Cancer Screening (CCS) 2019 HPV/Cotest 2019 Influenza Immunization (#1) 07/05/202508/04, 09/17/2022, 08/24/2021, Additional history exists SARS-COV-2 Immunization ( season) 2025 12/03/2021, 02/12/2021, 01/19/2021 Respiratory Syncytial Virus (RSV) Immunization (Adult) (1 - 1-dose 75+ series) 2064 DTaP/Tdap/Td Immunization Discontinued 06/20/2024, 02/2017 TdaP Immunization Completed 06/20/2024, 10/07/2017 Meningococcal Immunization (ACWY) Aged Out No longer eligible based on patient's age to complete this topic Pneumococcal Immunization Combined Aged Out No longer eligible based on patient's age to complete this topic Rotavirus Immunization Aged Out No lo nger eligible based on patient's age to complete this topic Insurance [facility] Care Teams Track Laying Supervisor Relationship Specialty Start Date End Date Gerard Woodson [address] [place] [address] - [address] 06/05/24 Brissa Alvarez MD [address] [id number] Consulting Physician Endocrinology 07/09/24
[2025-07-29 03:37] LABS: Hematocrit 34.7 % (37.0-47.0); Hemoglobin 11.4 g/dL (12.0-15.0); Immature Granulocyte Percent A 0.3 % (0-0.5); Lymphocytes Absolute Auto 2.34 K/mm3 (0.9-3.2); Mean Corpuscular HGB Conc 32.9 g/dl (32-36); Mean Corpuscular Hemoglobin 28.9 pg (26-34); Mean Corpuscular Volume 87.8 fl (80-100); Nucleated Red Blood Cells Absolute Auto 0.000 K/mm3 (0.0-0.012); Nucleated Red Blood Cells Perc 0.0 % (0.0-0.2); Platelet Count Result 236 k/mm3 (150-375); Red Blood Count 3.95 M/mm3 (4.2-5.4); White Blood Count 7.5 K/mm3 (4.5-10.0)
--- NOTE | 2025-07-29 03:37 | ED.PREGNANCY ---
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 She states that she is approximately 8-10 weeks along based on previous outside ultrasonography and evaluation with a HCG numbers. Patient previously diagnosed on the of this month with a ongoing miscarriage secondary but has not had any further imaging. She endorses feeling lightheaded and passing very large quarter and larger size clots continuously since today. She is endorsing lower abdominal cramping. Her OBGYN is Dr. Woodson and she has had history of hemorrhage as well as a left oophorectomy by him. Denies any traumatic injuries. No fever, chills. No upper abdominal pain, nausea, vomiting. She took some ibuprofen prior to arrival without any relief of symptoms. Related Data Home Medications ?Medication ?Instructions ?Recorded ?Confirmed ?Last Taken ?Type levothyroxine 137 mcg capsule 137 mcg PO DAILY 12/17/24 06/25/25 Unknown History vitamins no.102-iron 90 1 cap PO DAILY 06/25/25 06/25/25 Unknown History mg-folate 1 mg-dha 200 mg capsule Allergies Allergy/AdvReac Type Severity Reaction Status Date / Time No Known Allergies Allergy Verified 06/25/25 09:17 Review of Systems Review of Systems: As reviewed above in HPI All systems reviewed & are unremarkable except as noted in HPI and below PMFSH Past Medical History Medical History Post-op pain Post term , delivered Preeclampsia, severe hemorrhage Oligohydramnios Overweight (BMI 25.0-29.9) Gestational diabetes and not yet delivered Missed period Hypothyroidism Family History Family History Father Thyroid disorder Mother Thyroid disorder Social History Social History Smoking status: Never smoker Second hand tobacco smoke exposure: No Alcohol intake: current Alcohol use details: Social Substance use: never Substance use type: does not use Do You Feel Safe in your Home?: Yes Lack of Transportation: No Lack of Food: Never True Current Housing: I Have Housing Concerned About Future Housing: No Difficulty Paying Gas/Electric Bills: No Difficulty Paying for Meds: No Currently Unemployed: No Education: Master's Degree or Higher Difficulty w/ Childcare or Family Care: No Living arrangements: with family Gender identity (if verbalized by the patient): Female Spiritual care concerns: No Exam Narrative: GENERAL: [Well-appearing, well-nourished, and in no acute distress.] HEAD: [Normocephalic, atraumatic.] EYES: [PERRLA and EOMI.] ENT: Nares clear, no rhinorrhea or epistaxis. Mucous membranes moist. NECK: Supple. CHEST: [Clear to auscultation. No respiratory distress.] HEART: [Regular rate and rhythm]. No murmur heard. [Normal peripheral pulses.] ABDOMEN: [Soft, nondistended], [nontender], [No rigidity or guarding] : Significant amounts of fresh bleeding in the vaginal vault, large blood clot passage. Cervical os difficult to visualize secondary to bleeding. Mild discomfort with Mendosa swabs but no significant pain with speculum or examination. EXTREMITIES: Normal range of motion. [No edema.] SKIN: Warm, dry, no rash. NEURO: [No focal deficits]. Alert and oriented [x3.] PSYCH: [Normal mood and affect.] Course Vital Signs Vital signs: Vital Signs Temperature 36.6 C 07/29/25 03:10 Pulse Rate 95 07/29/25 03:10 Respiratory Rate 18 07/29/25 03:10 Blood Pressure 131/98 H 07/29/25 03:10 Pulse Oximetry 98 07/29/25 03:10 Oxygen Delivery Room Air 07/29/25 03:10 Temperature 36.2 C L 07/29/25 06:10 Pulse Rate 72 07/29/25 06:15 Respiratory Rate 18 07/29/25 06:15 Blood Pressure 93/62 L 07/29/25 06:15 Pulse Oximetry 100 07/29/25 06:15 Oxygen Delivery Room Air 07/29/25 03:10 MDM - OB/Uterine Contractions MDM Narrative Medical decision making narrative: 34-year-old female presenting to the emergency department today with vaginal bleeding in the setting of . She states that she is approximately 8-10 weeks along based on previous outside ultrasonography and evaluation with a HCG numbers. Patient previously diagnosed on the 5th of this month with a ongoing miscarriage secondary but has not had any further imaging. She endorses feeling lightheaded and passing very large quarter and larger size clots continuously since today. She is endorsing lower abdominal cramping. Her OBGYN is Dr. Woodson and she has had history of hemorrhage as well as a left oophorectomy by him. Denies any traumatic injuries. No fever, chills. No upper abdominal pain, nausea, vomiting. She took some ibuprofen prior to arrival without any relief of symptoms. Significant amounts of fresh bleeding in the vaginal vault, large blood clot passage. Cervical os difficult to visualize secondary to bleeding. Mild discomfort with Mendosa swabs but no significant pain with speculum or examination. Patient remains hemodynamically stable, no tachycardia, tachypnea, fever, hypoxia or blood pressure concerns. Given her degree of bleeding she will likely require operative intervention such as a D&C by OBGYN. Will evaluate laboratory studies and obtain an ultrasound to rule out other possible problems such as retained products, septic , very unlikely heterotopic/ectopic . We do not have any previous ultrasound images to compare to so I do not actually have visualized IUP and just history elements per family and patient. Patient aware of the plan. Given Toradol for pain control. Patient continuously bleed slowly throughout the encounter here in the emergency department. I did independently review the ultrasound and what appears to be retained products of conception. Pads were changed frequently. Bleeding began more briskly and she received fluid resuscitation but then started becoming hypotensive all the way down to the 60 systolic sustained. [place] lightheaded and nauseous vomited 1 time. Mentating appropriately.. She received emergent packed red blood cell transfusion at this time 2 units on crossed. Discussed with blood bank is she does have antibodies but needing the emergent blood at this time given her signs and symptoms of hemorrhagic shock the benefits outweigh the risks. Patient consented. Given additional fluids and packed red blood cells as well as 1 g of TXA for her active bleeding. Consult and spoke with Dr. Woodson over the phone regarding patient's presentation and acute decompensation while here in the emergency department requiring emergent OR evaluation for likely D&C and hemostasis. Dr. Campo agrees and asked me to mobilize the OR. I spoke to the charge nurse staff as well as the washhouse worker and OR team was made aware and activated. Patient made aware of the plan to go to the operating room urgently. Bleeding has slowed down after the TXA and her blood pressures have improved with fluid and blood resuscitation currently in the 100 systolic range. Patient is stabilized and transferred to the OR for definitive care. Medical Records Attestation: I reviewed the patient's medical records. Lab Data Attestation: I reviewed the patient's lab results. 07/29/25 03:31 07/29/25 03:31 Labs: Lab Results 07/29/25 07/29/25 Range/Units 03:31 05:31 WBC 7.5 (4.5-10.0) K/mm3 RBC 3.95 L (4.2-5.4) M/mm3 Hgb 11.4 L (12.0-15.0) g/dL Hct 34.7 L (37.0-47.0) % MCV 87.8 (80-100) fl MCH 28.9 (26-34) pg MCHC 32.9 (32-36) g/dl RDW 14.0 (11.5-14.5) % Plt Count 236 (150-375) k/mm3 MPV 9.2 (7.4-10.4) fl Immature Gran % (Auto) 0.3 (0-0.5) % Neut % (Auto) 58.7 (45.5-73.1) % Lymph % (Auto) 31.1 (18.3-44.2) % Adams % (Auto) 8.1 (2.6-8.5) % Eos % (Auto) 1.3 (0-4.4) % Baso % (Auto) 0.5 (0.2-1.2) % Lymph # (Auto) 2.34 (0.9-3.2) K/mm3 Adams # (Auto) 0.6 (0.1-0.6) K/mm3 Eos # (Auto) 0.1 (0-0.3) K/mm3 Baso # (Auto) 0.0 (0.0-0.1) K/mm3 Abs Immat Gran (auto) 0.02 (0.00-0.031) K/mm3 Absolute Neuts (auto) 4.4 (1.3-6.7) K/mm3 Absolute Nucleated RBC 0.000 (0.0-0.012) K/mm3 Nucleated RBC % 0.0 (0.0-0.2) % PT 12.9 (11.1-14.7) Seconds INR 1.0 APTT 24.8 (22.3-36.8) Seconds Sodium 135 L (137-145) mmol/L Potassium 3.7 (3.4-5.0) mmol/L Chloride 106 (98-107) mmol/L Carbon Dioxide 22 (22-30) mmol/L Anion Gap 7 (4-12) mmol/L BUN 12 D (7-17) mg/dL Creatinine 0.55 L (0.7-1.0) mg/dL Estim Creat Clear Calc 113 ml/min Estimated GFR > 60 (59 - ) Glucose 92 (65-110) mg/dL POC Capillary Glucose 110 H (65-105) mg/dl Calcium 9.3 (8.4-10.2) mg/dL Total Bilirubin 0.6 (0.2-1.3) mg/dL AST 26 (14-36) U/L ALT 14 (6-35) U/L Alkaline Phosphatase 65 (38-126) U/L Total Protein 7.4 (6.3-8.2) g/dL Albumin 4.3 (3.5-5.1) g/dL Beta HCG, Quant 01735.00 mIU/ML Blood Type A Positive Antibody Screen Positive Antibody Identification Pending Antigen Identification Pending VIDHYA, IgG Interpret Pending VIDHYA, Poly Interpret Pending VIDHYA, Complement Interp Pending Screen TNP Baby's Blood Type Not Reportable Baby's VIDHYA Not Reportable Doses of RhIg Required 0 Crossmatch See Detail Enhanced Crossmatch See Detail Imaging Data Attestation: I personally reviewed and interpreted this imaging study as follows: My impression: Likely retained products of conception Critical Care Time Critical Care Time Critical Care Time: Yes Total Critical Care Time: 75 Discharge Plan Discharge Clinical Impression: Hemorrhagic shock, Incomplete miscarriage with shock Patient Disposition: Still a Patient Condition: Serious Patient Language: Yi Prescriptions: No Action levothyroxine 137 mcg capsule 137 mcg PO DAILY PNV [id number] 90 mg iron- 1 mg-200 mg capsule 1 cap PO DAILY Follow-up/Referrals: Linda Juan APRN [Primary Care Provider, Internal Medicine] Time of Disposition: 06:46
[2025-07-29 03:48] LABS: INR 1.0; Partial Thromboplastin Time 24.8 Seconds (22.3-36.8); Prothrombin Time 12.9 Seconds (11.1-14.7)
[2025-07-29 03:54] LABS: Alanine Aminotransferase 14 U/L (6-35); Albumin Level 4.3 g/dL (3.5-5.1); Alkaline Phosphatase 65 U/L (38-126); Anion Gap 7 mmol/L (4-12); Aspartate Amino Transferase 26 U/L (14-36); Bilirubin,Total 0.6 mg/dL (0.2-1.3); Blood Urea Nitrogen 12 mg/dL (7-17); Calcium 9.3 mg/dL (8.4-10.2); Carbon Dioxide 22 mmol/L (22-30); Chloride 106 mmol/L (98-107); Estimated CRCL calculation 113 ml/min; Estimated Glomerular Filt Rate > 60; Glucose 92 mg/dL (65-110); Potassium 3.7 mmol/L (3.4-5.0); Sodium 135 mmol/L (137-145); Total Protein 7.4 g/dL (6.3-8.2)
[2025-07-29] MEDS: KETOROLAC 15 MG/ML VIAL (*BKC) IV PUSH (03:57)
[2025-07-29 04:05] LABS: Beta HCG Quantitative 10615.00 mIU/ML
--- NOTE | 2025-07-29 05:38 | PC.NURSE ---
Pt called RN into room stating she was light headed and nauseous. BP taken and it was 60s/30s. ERP aware and verbal order of zofran and IV fluid bolus ordered. 2 units of blood ordered.
[2025-07-29] MEDS: TRANEXAMIC ACID 1,000 MG/10 ML AMPUL 1000 MG IV PUSH (05:39)
[2025-07-29] MEDS: SODIUM CHLORIDE 0.9% IV 1,000 ML 999 ML (05:40)
[2025-07-29] MEDS: ONDANSETRON INJ 4 MG/2 ML VIAL IV PUSH (05:40)
--- NOTE | 2025-07-29 05:50 | PC.NURSE ---
1st unit of blood started. IV bolus per ERP.
--- NOTE | 2025-07-29 06:05 | PC.NURSE ---
1st unit of blood completed.
--- NOTE | 2025-07-29 06:10 | PC.NURSE ---
2nd unit of blood started.
--- NOTE | 2025-07-29 06:20 | PC.NURSE ---
Pt to OR.
--- NOTE | 2025-07-29 06:25 | PC.NURSE ---
Pt in OR waiting suite. 2nd unit of blood completed. Report handed off to OR team.
--- NOTE | 2025-07-29 06:29 | PM.IMHP ---
H&P: HPI History of Present Illness Date/Time: 07/29/25 06:29 Chief Complaint: Vaginal bleeding Narrative: This patient is a 34-year-old multiparous female who presented emergency department with vaginal hemorrhage. She has incomplete miscarriage. She was evaluated in the emergency department. She was given 2 units of packed red blood cells. She was tachycardic, hypotensive and diaphoretic for a period of time. we discussed treatment options in detail. We agreed to proceed with suction D&C. She understands risks, benefits, and alternatives. She has completed informed consent process is ready to proceed. The patient understands the details of the procedure. The procedure has been explained in detail. She understands the risks. She understands that injuries may occur that result in hospitalization, more surgery, and severe illness. She understands risk of hemorrhage and infection. She denies any chest pain or shortness of breath. She denies any nausea, vomiting, fever, chills. Review of Systems Review of Systems: All systems reviewed & are unremarkable except as noted in HPI and below Constitutional: Constitutional: Denies chills, Denies fatigue, Denies fever(s) and Denies weakness Eyes: Eyes: Denies blurry vision, Denies change in vision, Denies loss of peripheral vision, Denies loss of vision, Denies other visual disturbances and Denies eye pain ENT: Denies vertigo, Denies dizziness, Denies hearing loss, Denies mouth pain, Denies nasal obstruction, Denies neck mass and Denies neck pain Cardiovascular: Cardiovascular: Denies chest pain, Denies diaphoresis, Denies syncope, Denies leg edema and Denies dyspnea Respiratory: Respiratory: Denies chest congestion, Denies cough, Denies hemoptysis, Denies dyspnea and Denies wheezing Gastrointestinal: Gastrointestinal: Denies abdominal pain, Denies constipation, Denies diarrhea, Denies nausea and Denies vomiting Genitourinary: Genitourinary: Denies hematuria, Denies change in libido, Denies nocturia, Denies genital lesions, Denies flank pain and Denies urinary urgency Musculoskeletal: Musculoskeletal: Denies abnormal gait, Denies back pain, Denies myalgias, Denies arthralgias, Denies joint swelling, Denies muscle weakness and Denies neck pain Integumentary/Breasts: Skin/Breast: Denies swelling, Denies breast pain, Denies breast mass, Denies dry skin, Denies nipple discharge, Denies unusual bruising and Denies jaundice Neurologic: Denies Neuro-related abnormal movements, Denies Abnormal speech present, Denies abnormal gait, Denies behavioral changes, Denies confusion, Denies vertigo, Denies dizziness, Denies syncope, Denies loss of vision, Denies memory loss, Denies convulsions and Denies weakness Psychiatric: Psychiatric: Denies abnormal sleep pattern, Denies behavioral changes, Denies change in libido, Denies confusion, Denies depression, Denies anhedonia and Denies memory loss Endocrine: Endocrine: Reports no additional endocrine complaints, Denies change in libido and Denies fatigue Hematologic/Lymphatic: Hematologic/Lymphatic: Reports no additional hematologic/lymphatic complaints Allergic/Immunologic: Allergic/Immunologic: Reports no additional allergic/immunologic complaints and Denies wheezing PMFSH Past Medical History Medical History Post-op pain Post term , delivered Preeclampsia, severe hemorrhage Oligohydramnios Overweight (BMI 25.0-29.9) Gestational diabetes and not yet delivered Missed period Hypothyroidism Family History Family History Father Thyroid disorder Mother Thyroid disorder Social History Social History Smoking status: Never smoker Second hand tobacco smoke exposure: No Alcohol intake: current Alcohol use details: Social Substance use: never Substance use type: does not use Do You Feel Safe in your Home?: Yes Lack of Transportation: No Lack of Food: Never True Current Housing: I Have Housing Concerned About Future Housing: No Difficulty Paying Gas/Electric Bills: No Difficulty Paying for Meds: No Currently Unemployed: No Education: Master's Degree or Higher Difficulty w/ Childcare or Family Care: No Living arrangements: with family Gender identity (if verbalized by the patient): Female Spiritual care concerns: No Meds Home Medications and Allergies Home Medications ?Medication ?Instructions ?Recorded ?Confirmed ?Type levothyroxine 137 mcg capsule 137 mcg PO DAILY 12/17/24 06/25/25 History vitamins no.102-iron 90 1 cap PO DAILY 06/25/25 06/25/25 History mg-folate 1 mg-dha 200 mg capsule Allergies Allergy/AdvReac Type Severity Reaction Status Date / Time No Known Allergies Allergy Verified 06/25/25 09:17 Vital Signs Vital Signs - 24 hr 07/29/25 03:10 07/29/25 05:28 07/29/25 05:28 Temperature 97.8 F Pulse Rate 95 61 Respiratory Rate 18 14 Blood Pressure 131/98 H 68/35 L 69/35 L Pulse Oximetry 98 100 Oxygen Delivery Room Air 07/29/25 05:29 07/29/25 05:29 07/29/25 05:40 Temperature Pulse Rate 60 Respiratory Rate 13 Blood Pressure 79/53 L 79/53 L 87/60 L Pulse Oximetry 100 Oxygen Delivery 07/29/25 05:40 07/29/25 05:42 07/29/25 05:50 Temperature 98.4 F Pulse Rate 77 75 Respiratory Rate 12 18 Blood Pressure 87/60 L 87/56 L 81/58 L Pulse Oximetry 99 99 Oxygen Delivery 07/29/25 05:55 07/29/25 06:05 07/29/25 06:10 Temperature 97.2 F L Pulse Rate 77 70 71 Respiratory Rate 18 18 18 Blood Pressure 82/55 L 102/61 103/88 Pulse Oximetry 100 99 99 Oxygen Delivery 07/29/25 06:15 Temperature Pulse Rate 72 Respiratory Rate 18 Blood Pressure 93/62 L Pulse Oximetry 100 Oxygen Delivery Exam Const: General: cooperative, healthy appearing, comfortable and no acute distress Orientation/consciousness: oriented to person, oriented to place and oriented to time HENMT: Head: normal to inspection Ears: external ears normal Face/Nose/Sinus: Normal external nose present and normal facial exam Face and sinus: normal facial exam Eyes: General: appearance normal, both eyes and all related structures Neck: Neck: normal visual inspection, trachea midline and supple Resp: Auscultation: clear to auscultation bilaterally, no crackles, no rales, no rhonchi and no wheezes Cardio: Rate: regular rate Rhythm: regular rhythm Heart sounds: no click, no murmurs and no rubs GI: GI Palp: No abdominal tenderness, No Soft to palpation, No Tenderness to palpation present (GI) and No Palpable mass present Auscultation: normal bowel sounds Skin: General skin exam: normal color and no rashes or lesions noted Neuro: General: oriented to person, oriented to place and oriented to time Extrem: General: normal to inspection, no joint enlargement, no clubbing, cyanosis or edema, no pedal edema and no calf tenderness Psych: Appearance: grossly normal Mental Status: mental status grossly normal Speech and movement: Normal speech and movement present H&P: Results Labs Labs: Short CBC 07/29/25 Range/Units 03:31 WBC 7.5 (4.5-10.0) K/mm3 Hgb 11.4 L (12.0-15.0) g/dL Hct 34.7 L (37.0-47.0) % Plt Count 236 (150-375) k/mm3 BMP 07/29/25 03:31 Sodium 135 L Potassium 3.7 Chloride 106 Carbon Dioxide 22 BUN 12 D Creatinine 0.55 L Glucose 92 Calcium 9.3 Liver Function 07/29/25 Range/Units 03:31 Total Bilirubin 0.6 (0.2-1.3) mg/dL AST 26 (14-36) U/L ALT 14 (6-35) U/L Alkaline Phosphatase 65 (38-126) U/L Albumin 4.3 (3.5-5.1) g/dL Assessment and Plan Assessment and plan (1) Incomplete miscarriage: Code(s): O03.4 - Incomplete spontaneous without complication Status: Acute (2) Hemorrhage: Code(s): R58 - Hemorrhage, not elsewhere classified Status: Acute Plan This patient is a 34-year-old multiparous female who presented emergency department with vaginal hemorrhage. She has incomplete miscarriage. She was evaluated in the emergency department. She was given 2 units of packed red blood cells. She was tachycardic, hypotensive and diaphoretic for a period of time. we discussed treatment options in detail. We agreed to proceed with suction D&C. She understands risks, benefits, and alternatives. She has completed informed consent process is ready to proceed.
--- NOTE | 2025-07-29 06:31 | WPDANESEPPF ---
Anes - Initial Pre Proc Eval Procedure: Operation Date: 07/29/25 06:30 Proposed Procedures p Suction Dilatation And Curettage - Gerard Woodson MD Date/Time: 07/29/25 06:31 Pre Op Diagnosis: vaginal bleeding Patient Data Age: 34 Gender: F Height: 1.68 m Weight: 71.5 kg Last Vital Signs Temp 36.2 C L 07/29/25 06:10 Pulse 72 07/29/25 06:15 Resp 18 07/29/25 06:15 BP 93/62 L 07/29/25 06:15 Pulse Ox 100 07/29/25 06:15 O2 Del Method Room Air 07/29/25 03:10 Allergies Allergy/AdvReac Type Severity Reaction Status Date / Time No Known Allergies Allergy Verified 06/25/25 09:17 Home Medications ?Medication ?Instructions ?Recorded ?Confirmed ?Type levothyroxine 137 mcg capsule 137 mcg PO DAILY 12/17/24 06/25/25 History vitamins no.102-iron 90 1 cap PO DAILY 06/25/25 06/25/25 History mg-folate 1 mg-dha 200 mg capsule Laboratory Tests 07/29/25 07/29/25 03:31 05:31 WBC 7.5 K/mm3 (4.5-10.0) RBC 3.95 L M/mm3 (4.2-5.4) Hgb 11.4 L g/dL (12.0-15.0) Hct 34.7 L % (37.0-47.0) MCV 87.8 fl (80-100) MCH 28.9 pg (26-34) MCHC 32.9 g/dl (32-36) RDW 14.0 % (11.5-14.5) Plt Count 236 k/mm3 (150-375) MPV 9.2 fl (7.4-10.4) Immature Gran % (Auto) 0.3 % (0-0.5) Neut % (Auto) 58.7 % (45.5-73.1) Lymph % (Auto) 31.1 % (18.3-44.2) Curry % (Auto) 8.1 % (2.6-8.5) Eos % (Auto) 1.3 % (0-4.4) Baso % (Auto) 0.5 % (0.2-1.2) Lymph # (Auto) 2.34 K/mm3 (0.9-3.2) Curry # (Auto) 0.6 K/mm3 (0.1-0.6) Eos # (Auto) 0.1 K/mm3 (0-0.3) Baso # (Auto) 0.0 K/mm3 (0.0-0.1) Abs Immat Gran (auto) 0.02 K/mm3 (0.00-0.031) Absolute Neuts (auto) 4.4 K/mm3 (1.3-6.7) Absolute Nucleated RBC 0.000 K/mm3 (0.0-0.012) Nucleated RBC % 0.0 % (0.0-0.2) PT 12.9 Seconds (11.1-14.7) INR 1.0 APTT 24.8 Seconds (22.3-36.8) Sodium 135 L mmol/L (137-145) Potassium 3.7 mmol/L (3.4-5.0) Chloride 106 mmol/L (98-107) Carbon Dioxide 22 mmol/L (22-30) Anion Gap 7 mmol/L (4-12) BUN 12 D mg/dL (7-17) Creatinine 0.55 L mg/dL (0.7-1.0) Estim Creat Clear Calc 113 ml/min Estimated GFR > 60 (59 - ) Glucose 92 mg/dL (65-110) POC Capillary Glucose 110 H mg/dl (65-105) Calcium 9.3 mg/dL (8.4-10.2) Total Bilirubin 0.6 mg/dL (0.2-1.3) AST 26 U/L (14-36) ALT 14 U/L (6-35) Alkaline Phosphatase 65 U/L (38-126) Total Protein 7.4 g/dL (6.3-8.2) Albumin 4.3 g/dL (3.5-5.1) Beta HCG, Quant 60151.00 mIU/ML Blood Type A Positive Antibody Screen Positive Antibody Identification Pending Antigen Identification Pending VIDHYA, IgG Interpret Pending VIDHYA, Poly Interpret Pending VIDHYA, Complement Interp Pending Screen TNP Baby's Blood Type Not Reportable Baby's VIDHYA Not Reportable Doses of RhIg Required 0 Crossmatch See Detail Enhanced Crossmatch See Detail Patient hx anesthesia problems: none Family hx anesthesia problems: none Results Review: All pre-operative results and documents have been reviewed as part of the pre-operative evaluation. [facility] Past Medical History Medical History Post-op pain Post term , delivered Preeclampsia, severe hemorrhage Oligohydramnios Overweight (BMI 25.0-29.9) Gestational diabetes and not yet delivered Missed period Hypothyroidism Family History Family History Father Thyroid disorder Mother Thyroid disorder Social History Social History Smoking status: Never smoker Second hand tobacco smoke exposure: No Alcohol intake: current Alcohol use details: Social Substance use: never Substance use type: does not use Do You Feel Safe in your Home?: Yes Lack of Transportation: No Lack of Food: Never True Current Housing: I Have Housing Concerned About Future Housing: No Difficulty Paying Gas/Electric Bills: No Difficulty Paying for Meds: No Currently Unemployed: No Education: Master's Degree or Higher Difficulty w/ Childcare or Family Care: No Living arrangements: with family Gender identity (if verbalized by the patient): Female Spiritual care concerns: No Anes - Eval Final PreProcedure Day of Procedure 07/29/25 06:31 Patient weight: normal Heart: regular rate and rhythm Lungs: clear to auscultation Airway: Mallampati scale class II Neurological: alert and oriented Last oral intake: >/= 8 hours ASA classification: II Emergent: yes Anesthetic plan: proceed Anesthesia type and monitoring: general GIVS and standard monitoring Results Review: All pre-operative results and documents have been reviewed as part of the pre-operative evaluation. Informed Consent: The patient's anesthetic plan and its attendant risks and benefits were discussed with the patient/family/POA. Questions were solicited and answers provided to the satisfaction of the patient/family/POA.
--- NOTE | 2025-07-29 06:32 | WPDHPUPDATE1 ---
History and Physical Update Update Date/Time: 07/29/25 06:32 History and Physical has been reviewed, including an updated exam of the patient. There are NO changes in the patient's condition. Risks, benefits, and alternatives have been discussed and questions answered. Patient agrees to proceed with procedure.
--- NOTE | 2025-07-29 07:02 | W.PM.PROC2 ---
Procedure Note - Detailed Date of Procedure 07/29/25 Pre-op Diagnosis vaginal bleeding Post-op Diagnosis Same Procedure Performed Suction D&C Surgeon Gerard Woodson MD Anesthesia MAC Indications missed Findings normal-appearing vulva vagina and cervix to. Moderate amount of products conception within the uterus. 8 cm uterus Description of Procedure the patient was taken the operating room. She was prepped and draped in dorsal lithotomy position after induction of mac anesthesia. A speculum was placed in the vagina. Cervix grasped with tenaculum. The cervix was dilated to about 1 cm Using Harrington dilators. A 8. Ukrainian curved curette was used to perform suction D&C. The curette was introduced and vacuum was applied. The curette was removed over all surfaces of the intrauterine cavity multiple times. This was done until all the surfaces were clear and had the familiar grainy texture they can be felt through the instrument. A sharp curette was then used to curettage all the surfaces. The suction cup was then reapplied 1 more time to remove any debris. The instruments were removed. The speculum and tenaculum were removed. The patient tolerated the procedure well. She was taken recovery room stable condition. Estimated Blood Loss 50 Drains No Packing No Pathology Yes Complications No immediate complications Condition Stable Disposition PACU
--- NOTE | 2025-07-29 07:03 | S_PTH ---
PATIENT: Andreina Alfonso LOC: [facility] U#:[id number] AGE/SX: 34/F ROOM: RE07/29/[address]: Gerard Woodson MD : 1990 BED: DIS: 07/29/2025 SPEC #: [id number] RECD: 07/29/25 10:36 STATUS: CASS REQ #: [id number] YAKOV: 07/29/25 07:[address]: Gerard Woodson DEPT: [facility] Surgical RECD BY: Radha Jade ENTERED: 07/29/25 10:37 SP TYPE: Surgical OTHR DR: Linda Juan APRN Tissues: A - Uterine Contents Procedures: Hematoxylin and Eosin Stain Gross and Microscopic Level 4
[2025-07-29] MEDS: LACTATED RINGERS 1,000 ML 30 ML IV CONT ×2 (07:09→07:26)
--- OUTSIDE RECORDS SUMMARY | 2025-07-29 07:58 | XMS_ITS | Clinical Summary ---
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
--- OUTSIDE RECORDS SUMMARY | 2025-07-29 07:58 | XMS_ITS | Data Portability ---
Author Organization [facility] Address [address] [address] [place] [address] Care Team Providers Care Pharmacy Aide Name Role Phone TAMI PHILLIP Primary Care Provider Assessment No assessment recorded. Plan of Treatment Reminders Order Date Submit Date Provider Last Modified By Organization Details Last Modified Time Details Appointments None recorded. Lab None recorded. Referral None recorded. Procedures None recorded. Surgeries None recorded. Imaging US, obstetric, transvagina l 2024 [email or web address], [address], [place], [address], 17:30:21 US, obstetric, transvagina l [email or web address], [facility] [address], [address], [place], [address], 18:46:00 Medication Orders estradiol 0.01% (0.1 mg/gram) vaginal cream 2024 025 [facility] [employer] [facility] #[id number], [address] , [place], [place], [id number], 09:41:00 Patient TargetsNo targets recorded. Patient InstructionsNo instructions recorded. Reason for Referral None Reported. Results Created Date Observation Date Name Description Value Unit Range Abnormal Flag Note LastModifiedBy Organization Detail LastModifiedTime 11/13/1911/13/2024 WOMEN 'S HEALT H SWAB, REJI natividad species, tma Negati ve negati ve Not Available [facility] (Lab) [address] [place], [address], 11/16/2024 13:26:08 11/13/1911/13/2024 WOMEN 'S HEALT H SWAB, REJI natividad glabrata, tma Negati ve negati ve Not Available [facility] (Lab) [address] [place], [address], 11/16/2024 13:26:08 11/13/1911/13/2024 WOMEN 'S HEALT H SWAB, REJI trichomonas vaginalis, tma Negati ve negati ve This assay tests for and diffe renti davion gutierrez en Elisabet da glabr shai, the Elisabet da speci es group (C. albic ans, C. tropi calis , C. parap truman is, C. dubli evelyne is), and Trich omona s vagin keegan by Trans cript ion-M ediat ed Ampli ficat ion (TMA) . Not Available [facility] (Lab) [address] [place], [address], 11/16/2024 13:26:08 11/13/1911/13/2024 WOMEN 'S HEALT H SWAB, REJI bacterial vaginosis (bv), tma Negati ve negati ve This test detec ts ribos omal RNA from bacte joseline assoc iated with bacte rial vagin osis (BV), inclu ding Lacto bacil art (L. gasse ri, L. crisp atus and L. jense kanika), Gardn erell a vagin keegan, and Atopo bium vagin ae by Trans cript ion-M ediat ed Ampli ficat ion (TMA) . A singl e quali tativ e resul t is repor dayron based on instr ument softw are to deter mine BV posit willi or negat willi statu s. Not Available [facility] (Lab) [address] [place], [address], 11/16/2024 13:26:08 07/09/2007/09/2025 T4 FREE T4, free 0.91 NG/dL 0.54-1 .24 This assay is susce ptibl e to inter vivek ce from high level s of bioti n which may false ly eleva te resul ts. Pleas e corre late with clini kojo findi ngs. Not Available [facility] (Lab) [address] [facility], [place], [address], 07/10/2025 08:28:00 07/09/2007/09/2025 TSH, REFLE X FREE T4 TSH 5.42 uIU/m L 0.30-5 .33 high Not Available [facility] (Lab) [address] [facility], [place], [address], 07/10/2025 08:28:01 07/09/2007/09/2025 BHCG, QUANT ITATI VE B-HCG 82347. 0 mIU/m L 0.0-4. 9 high This assay was perfo rmed using [employer] n reage nts and test kits. Value s obtai marlene with other assay metho ds or kits canno t be used inter manuel [facility] . Refer ence Range s: Non-p regna nt, preme nopau linda women : 0.0-4 .9 mIU/m L Postm enopa usal women : 0.0-7 .0 mIU/m L Consuelo l Pregn david: Gesta cecy l Age bHCG Conc. - mIU/m L 3 Weeks 5.8 - 71.7 4 Weeks 9.5 - 750 5 Weeks 217-7 138 6 Weeks 158 - 31,79 5 7 Weeks 3,697 - 162,5 63 8 Weeks 32,06 5 - 149,5 71 9 Weeks 63,80 3 - 151,4 10 10 Weeks 46,50 9 - 186,9 77 12 Weeks 27,83 2 - 210,6 12 14 Weeks 13,95 0 - 62,53 0 15 Weeks 12,03 9 - 70,97 1 16 Weeks 9,040 - 56,45 1 17 Weeks 8,175 - 55,86 8 18 Weeks 8,099 - 58,17 6 Not Available [facility] (Lab) [address] [facility], [place], [address], 07/10/2025 08:28:01 07/14/20 25 07/14/2025 BHCG, QUANT ITATI VE B-HCG 48802. 0 mIU/m L 0.0-4. 9 high This assay was perfo rmed using [employer] n reage nts and test kits. Value s obtai marlene with other assay metho ds or kits canno t be used inter [facility] . Refer ence Range s: Non-p regna nt, preme nopau linda women : 0.0-4 .9 mIU/m L Postm enopa usal women : 0.0-7 .0 mIU/m L Consuelo l Pregn david: Gesta cecy l Age bHCG Conc. - mIU/m L 3 Weeks 5.8 - 71.7 4 Weeks 9.5 - 750 5 Weeks 217-7 138 6 Weeks 158 - 31,79 5 7 Weeks 3,697 - 162,5 63 8 Weeks 32,06 5 - 149,5 71 9 Weeks 63,80 3 - 151,4 10 10 Weeks 46,50 9 - 186,9 77 12 Weeks 27,83 2 - 210,6 12 14 Weeks 13,95 0 - 62,53 0 15 Weeks 12,03 9 - 70,97 1 16 Weeks 9,040 - 56,45 1 17 Weeks 8,175 - 55,86 8 18 Weeks 8,099 - 58,17 6 Not Available [facility] (Lab) [address] [facility], [place], [address], 07/15/2025 05:04:47 07/15/20 25 07/15/2025 BHCG, QUANT ITATI VE B-HCG 62004. 0 mIU/m L 0.0-4. 9 high This assay was perfo rmed using [employer] n reage nts and test kits. Value s obtai marlene with other assay metho ds or kits canno t be used inter [facility] . Refer ence Range s: Non-p regna nt, preme nopau linda women : 0.0-4 .9 mIU/m L Postm enopa usal women : 0.0-7 .0 mIU/m L Consuelo l Pregn david: Gesta cecy l Age bHCG Conc. - mIU/m L 3 Weeks 5.8 - 71.7 4 Weeks 9.5 - 750 5 Weeks 217-7 138 6 Weeks 158 - 31,79 5 7 Weeks 3,697 - 162,5 63 8 Weeks 32,06 5 - 149,5 71 9 Weeks 63,80 3 - 151,4 10 10 Weeks 46,50 9 - 186,9 77 12 Weeks 27,83 2 - 210,6 12 14 Weeks 13,95 0 - 62,53 0 15 Weeks 12,03 9 - 70,97 1 16 Weeks 9,040 - 56,45 1 17 Weeks 8,175 - 55,86 8 18 Weeks 8,099 - 58,17 6 Not Available [facility] (Lab) [address], [place], [address], 07/27/2025 09:22:38 06/23/20 25 06/23/2025 US, obste tric, trans vagin al No observ ation record ed. [email or web address] [place] [address], [place], [address], 06/23/2025 18:23:39 06/23/20 25 06/23/2025 US, obste tric, follo w-up No observ ation record ed. [email or web address] [address] [facility], [place], [address], 06/24/2025 17:52:15 07/09/20 25 07/09/2025 US, obste tric, trans vagin al No observ ation record ed. [facility] [address], [place], [address], 07/09/2025 17:21:05 07/09/20 25 07/09/2025 US, obste tric, trans vagin al No observ ation record ed. [email or web address] [address], [place], [address], 07/11/2025 14:33:27 Result Notes None recorded. Problems Name Problem SNOMED Code Status Onset Date Resolution Date Notes Provider Name and Address Organization Details Recorded Time Cyst of left ovary [id number] Completed 11x8.6x9 .7 Yanely Smith, CNM [address], [place], [address], [facility] 4 16:59:14 Hypothyr oidism in pregnanc y 621713410 Completed synthroi d 125mcg Sophie drake [facility] 4 13:27:48 Thyroid nodule 431845389 Completed Referred to [facility] Gricelda pickard sent 06/01 - Pt did not schd appt with them r/t long waitlist . [facility], [facility] 4 09:40:16 Pregnanc y test negative [id number] Completed 201011/10/2020 Pregnanc y examinat ion or test, negative result;R ecorded Elsewher e: No Locat ion: [facility] S ource: EHR Angiography Technologist edilson: N Practi ce ID: 0001 George lable Time: 08:30:00 AM [facility] 1 11:29:58 Screenin g for malignan t neoplasm of cervix Completed 201011/10/2020 Screenin g for malignan t neoplasm s of the cervix;R ecorded Elsewher e: No Locat ion: [facility] S ource: EHR Angiography Technologist edilson: N Practi ce ID: 0001 George lable Time: 08:30:00 AM Chandni loomis [facility] 1 11:30:03 Uses oral contrace ption [id number] Completed 201011/10/2020 Surveill ance of contrace ptive pill;Rec orded Elsewher e: No Locat ion: [facility] S ource: EHR Angiography Technologist edilson: N Nikkiti ce ID: 0001 George lable Time: 08:30:00 AM [facility] 11:29:54 Oral contrace ptive prescrib ed Completed 201011/10/2020 General counseli ng on prescrip tion of oral contrace ptives;R ecorded Elsewher e: No Locat ion: [facility] S ource: EHR Angiography Technologist edilson: N Nikkiti ce ID: 0001 George lable Time: 08:30:00 AM Chandni Peterson [facility] 1 11:29:56 Speciali zed medical examinat ion Completed 201311/10/2020 Gynecolo gical Examinat ion;Donald rded Elsewher e: No Locat ion: [facility] S ource: EHR Angiography Technologist edilson: N Nikkiti ce ID: 0001 George lable Time: 09:00:00 AM Chandni Peterson [facility] 1 11:30:15 Adult health examinat ion Completed 201411/10/2020 ROUTINE MEDICAL EXAM;Rec orded Elsewher e: No Locat ion: [facility] S ource: EHR Angiography Technologist edilson: N Nikkiti ce ID: 0001 George lable Time: 11:00:00 AM Chandni loomis, [facility] 1 11:29:49 Educatio n Completed 201711/10/2020 Encounte r for other general counseli ng and advice on contrace ption;Re corded Elsewher e: No Locat ion: [facility] S ource: EHR Angiography Technologist edilson: N Nikkiti ce ID: 0001 George lable Time: 02:15:00 PM Chandni loomis, [facility] 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 11:30:[address] Concept Completed 201711/10/2020 Encounte r for general adult medical exam with abnormal finding; Recorded Elsewher e: No Locat ion: Chay carolina [facility] S ource: EHR Angiography Technologist edilson: N Practi ce ID: 0001 George lable Time: 02:15:00 PM Chandni [place] vladislav [facility] 11:30:[address] Concept Completed 201711/10/2020 Anxiety; Recorded Elsewher e: No Locat ion: Chay carolina [facility] S ource: EHR Angiography Technologist edilson: N Practi ce ID: 0001 George lable Time: 02:15:00 PM Chandni loomis, [facility] 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 11:30:[address] Concept Completed 201811/10/2020 Encntr for general adult medical exam w/o abnormal findings ;Recorde d Elsewher e: No Locat ion: Maryyuliyall caity [facility] S ource: EHR Angiography Technologist edilson: N Practi ce ID: 0001 George lable Time: 08:30:00 AM Chandni loomis [facility] 1 11:30:08 Pregnanc y [id number] Completed 202308/27/2024 Keysha Atkinson vladislav, [facility] 5 09:22:38 Problem Notes None recorded. Procedures Surgical History Date Name Laterality Status Provider Name and Address Organization Details Recorded Time 11/19/19 25 repair of vagina completed Chandni Peterson [facility] 11/19/2024 09:17:13 10/14/20 24 LAPAROSCOPIC OVARIAN CYSTECTOMY (SURG) completed Alma Vilchis [facility] 10/14/2024 13:58:16 01/17/20 24 Date of Last Pap Smear completed [facility] 01/17/2024 14:06:10 11/04/19 15 extraction of wisdom tooth completed [facility] 05/18/2022 12:46:06 Imaging Results None recorded. Procedure Notes None recorded. Medical Equipment None Reported. Allergies No known drug allergies Medications Name Sig Start Date Stop Date Status Note LastModified by Organization Details LastModified Time nifedipin e ER 30 mg tablet,ex tended release 24 hr Take 1 tablet every day by oral route. 07/20 completed Not Available Not Available Not Available amoxicill in 500 mg capsule TAKE 1 CAPSULE BY MOUTH TWICE DAILY FOR 10 DAYS 05/18 completed Not Available Not Available Not Available levothyro xine 137 mcg tablet TAKE 1 TABLET BY MOUTH DAILY active Not Available Not Available No t Available azithromy alejandra 250 mg tablet TAKE 2 TABLETS BY MOUTH FOR 1 DAY THEN TAKE 1 TABLET BY MOUTH DAILY FOR 4 DAYS 05/18 completed Not Available Not Available Not Available Lidocaine Viscous 2 % mucosal solution TAKE 5MLS BY MOUTH FOUR TIMES DAILY NEEDED FOR PAIN FOR 5 DAYS 05/18 completed Not Available Not Available Not Available hydrocodo ne 5 mg-acetam inophen 325 mg tablet TAKE 1 TO 2 TABLETS BY MOUTH EVERY 6 HOURS NEEDED FOR PAIN 10/22 completed Not Available Not Available Not Available Synthroid 150 mcg tablet 01/16 completed Not Available Not Available Not Available Synthroid 125 mcg tablet TAKE 1 TABLET DAILY DIRECTED active Not Available Not Available No t Available prednison e 20 mg tablet 10/22 completed Not Available Not Available Not Available metronida zole 500 mg tablet TAKE 1 TABLET BY MOUTH EVERY 12 HOURS FOR 7 DAYS active Not Available Not Available No t Available ciproflox acin 500 mg tablet TAKE 1 TABLET BY MOUTH EVERY 12 HOURS 05/18 completed Not Available Not Available Not Available levothyro xine 100 mcg tablet 01/16 completed Not Available Not Available Not Available oxycodone -acetamin ophen 5 mg-325 mg tablet 1 tablet 1 hour prior to procedur e 11/19 completed Not Available Not Available Not Available alprazola m 0.25 mg tablet TAKE 1 TABLET BY MOUTH DAILY NEEDED FOR ANXIETY 01/15 completed Not Available Not Available Not Available estradiol 0.01% (0.1 mg/gram) vaginal cream APPLY THIN LAYER VAGINALL Y TO PERINEUM DAILY active Not Available Not Available No t Available ondansetr on 4 mg disintegr ating tablet Place 1 tablet every 6 hours by translin gual route. active Not Available Not Available No t Available diazepam 5 mg tablet 1 tablet one hour prior to procedur e 11/19 completed Not Available Not Available Not Available levothyro xine 112 mcg tablet TAKE 1 TABLET BY MOUTH DAILY 05/18 completed Not Available Not Available Not Available levothyro xine 05/17 completed Not Available Not Available Not Available Tirosint 75 mcg capsule take 1 capsule (75MCG) by oral route every day 10/11 completed Prescrib ed Elsewher e: No Locat ion: Chay carolina [facility] odify By: cmedical Encount er DateTime : 10/09/20 11 08:30:00 AM Not Available Not Available Not Available Lo Loestrin Fe 1 mg-10 mcg (24)/10 mcg (2) tablet take 1 tablet by oral route every day 01/28 completed Prescrib ed Elsewher e: No Locat ion: Chay carolina [facility] odify By: cmedical Encount er DateTime : 06/24/20 13 11:03:24 AM Not Available Not Available Not Available Viorele (28) 0.15 mg-0.02 mg (21)/0.01 mg (5) tablet TAKE 1 TABLET BY MOUTH EVERY DAY 01/15 completed Not Available Not Available Not Available Vitals Date Recorded Body height Body mass index (BMI) Body weight Systolic And Diastolic Provider Name and Address Organization Details Last Updated DateTime 11/19/2024 169.55 cm 25.7 kg/m2 53203.56 g 135/95 mm[Hg] Chandni Peterson [facility] 11/19/2024 09:16:03 Date Recorded Body height Body mass index (BMI) Body weight Systolic And Diastolic Provider Name and Address Organization Details Last Updated DateTime 11/27/2024 169.55 cm 25.6 kg/m2 73134.96 g 117/82 mm[Hg] Chandni Peterson [facility] 11/27/2024 09:19:27 Social History Question Answer Notes LastModified by Organizat ion Details LastModified Time Tobacco Smoking Status Never Smoker [facility], [facility] 05/18/2022 12:44:31 Do You Have An Advance Directive? No Information n ot available 05/17/2021 If You Are , What Was Your Level Of Alcohol Consumption Prior To ? Occasional [email or web address] Information not available 03/13/2024 How Many Years Have You Consumed Alcohol? 13 [email or web address] Information not available 01/17/2024 Are You Blind Or Do You Have Difficulty Seeing? No Information n ot available 05/17/2021 What Is Your Level Of Caffeine Consumption? Heavy Information not available 05/17/2021 How Much Tobacco Do You Chew? None Information not available 05/17/2021 In The 14 Days Before Symptom Onset, Have You Had Close Contact With A Laboratory-confirm ed COVID-19 While That Case Was Ill? No Information n ot available 05/17/2021 In The 14 Days Before Symptom Onset, Have You Had Close Contact With A Person Who Is Under Investigation For COVID-19 While That Person Was Ill? No Information not available 05/17/2021 Have You Been To An Area Known To Be High Risk For COVID-19? No Information not available 05/17/2021 Are You Deaf Or Do You Have Serious Difficulty Hearing? No Information not available 05/17/2021 What Type Of Diet Are You Following? VEGETARIAN [email or web address] Information n ot available 02/14/2024 What Is The Highest Grade Or Level Of School You Have Completed Or The Highest Degree You Have Received? [id number] Information not available 05/17/2021 Are There Any Guns Present In Your Home? Yes [email or web address] Information not available 02/14/2024 What Was The Date Of Your Most Recent Tobacco Screening? 08/21/2024 [email or web address] Information not available 08/21/2024 Do You Use Protection During Sex? No Information not available 05/17/2021 Do You Use Your Seat Belt Or Car Seat Routinely? Yes Information not available 05/17/2021 Do You Have Smoke And Carbon Monoxide Detectors In Your Home? Yes Information not available 05/17/2021 How Much Tobacco Do You Smoke? No [email or web address] Information not available 11/10/2020 Do You Use Sunscreen Routinely? Yes Information not available 05/17/2021 Have You Used IV Drugs? No Information not available 05/17/2021 Do You Have Difficulty Walking Or Climbing Stairs? No [email or web address] Information not available 05/18/2022 Sex: Unknown Functional Status Question Answer Note LastModified by Organizat ion Details LastModified Time Do you use any illicit or recreational drugs? No Information not available 05/17/2021 What is your level of alcohol consumption? None [email or web address] Information not available 03/13/2024 Do you or have you ever used smokeless tobacco? Never used smokeless tobacco [email or web address] Information not available 05/18/2022 Are you able to walk independently without assistance or assistive devices? [email or web address] Information not available 05/17/2021 Are you able to care for yourself independently? Yes [email or web address] Information not available 05/18/2022 What is your occupation? [employer] [email or web address] Information not available 02/14/2024 Do you have difficulty dressing, bathing, grooming, or toileting? No [email or web address] Information not available 05/18/2022 Do you or have you ever used e-cigarettes or vape? Never used electronic cigarettes [email or web address] Information not available 05/18/2022 What is your exercise level? Occasional Information not available 11/10/2020 Mental Status Question Answer Note LastModified by Organization D etails LastModified Time Do you feel stressed (tense, restless, nervous, or anxious, or unable to sleep at night)? [id number] Information not available 05/17/2021 Family History Relationship Description Onset Age of this Age Resolved Age Notes LastModified by Organization Details LastModified Time Maternal Uncle Malignant tumor of colon Not available 11/10 11:32:39 Mother Asthma [email or web address] Not available 11/10/2020 11:32:47 Sister Anemia Not available 0 02/14/2024 08:58:51 Medical History Condition Response Allergies (Food, seasonal, environmental ) N Other N Blood Transfusion N Drug/Latex Allergies/Reactions N Breast Cancer N Dermatologic Disorders N Lung Disease N Defects or Inherited Disease N Breast Problem N Gestational Diabetes N Hematologic disorders N Anesthesia Complications N History of STI N Deep Vein Thrombosis N Polycystic ovary syndrome N Anxiety Disorder Y Autoimmune disease N Arthritis N Infertility N Polyps N Acid Reflux (GERD) N History of abnormal pap N Cancer N Stroke N Varicosities N Neurologic/Epilepsy N Endometriosis N High Cholesterol N Headaches N Fibromyalgia N Kidney Disease N Heart Problems N Kidney or Bladder Problems N Thyroid Problems Y GI Problems N Eating Disorder N Anemia N Art (IVF or FET) N Psychiatric Illness N Ovarian Cancer N Diabetes N Pulmonary (TB, Asthma) N Hepatitis/Liver Disease N No Past Medical History N Eczema N Urinary Tract Infection N Abuse/Domestic Violence N Asthma N Trauma/Violence N Depression/ depression N Heart Disease N Pre-Eclampsia N Hypertension N Osteoporosis N Thrombophilias N Gynecological History Statement/Question Response Abnormal Pap N Date of Last Mammogram Date of LMP 11/18/2024 N On BCP's at Conception? N STIs/STDs N Was last menstrual period normal Y HPV Vaccine N Duration of Flow (days) 4 Current Control Method Breastfeedi ng/REINA Are cycles usually normal Y Frequency of Cycle (Q days) 4 Sexually Active? Y BCPs Menses Monthly N Date of DEXA bone scan Age of first menstrual cycle 12 Date of Last Pap Smear 01/17/2024 Sexual Problems? N LMP Definite Desired Control Method N Obstetrics History GPAL:G 1 P 1 0 0 1 Type Value Full Term 1 Living 1 Total 1 Immunizations Vaccine Type Date Status Note Provider Nam e and Address Organization Details Recorded Time Respiratory syncytial virus (RSV) MAB, unspecified 4 completed Chandni Peterson [facility] 07/27/2024 17:49:10 Past Encounters Encounter ID Performer Location Encounter Start Date Encounter Closed Date Diagnosis/Indication Diagnosis SNOMED-CT Code Diagnosis ICD10 Code Diagnosis IMO Codes Diagnosis Note [id number] [place] [address] [address] 11/10/2020 11:19:20 11/10/2020 11:56:16 Gynecologic examination 06520475 Z01.419 [id number] Gerard Tello MD [place] [address],[place] [address] 05/17/2021 14:42:06 05/17/2021 15:23:45 Urinary tract infectious disease 48108933 N39.0 This patient is a 30-year-ol d female with urinary tract infection. She has symptoms and a positive urine dip. She will be treated for urinary tract infection with antibiotic s. [id number] Yanely Smith CNM [place] [address],[place] [address] 05/18/2022 12:31:54 05/18/2022 14:31:00 Gynecologic examination 27680667 Z01.419 [id number] Yanely Smith CNM [place] [address],[place] [address] 01/17/2024 09:11:39 01/17/2024 11:03:58 Amenorrhea 61837570 N91.2 reviewed large cystic focus, ED precaution s will f/u next visit Hypothyroidism 64219904 E03.9 check pn labs today, Nips and carrier at the next visitwith new ob [id number] Gerard Tello MD [place] [address],[place] [address] 01/17/2024 09:12:15 01/17/2024 10:06:29 [id number] Gerard Tello MD [place] [address],[place] [address] 02/14/2024 08:58:02 02/14/2024 11:01:32 screening 550047981 Z36.82 Z3A.11 [id number] [facility] [address],[place] [address] 02/14/2024 08:59:20 02/14/2024 10:01:33 Gestation period, 12 weeks 20459803 Z3A.12 [id number] Gerard Tello MD [place] [address],[place] [address] 03/13/2024 09:00:02 03/13/2024 09:38:14 Cyst of ovary 80180007 N83.209 Z3A.15 [id number] [facility] [address],[place] [address] 03/13/2024 09:04:11 03/13/2024 10:13:28 Routine care [id number] Z34.92 [id number] MD Ursula Khan [address],[place] [address] 04/17/2024 09:02:06 04/20/2024 10:30:26 screening [id number] Z36.3 N83.202 Z3A.20 [id number] [facility] [address],[place] [address] 04/17/2024 09:04:02 04/17/2024 12:37:22 Routine care [id number] Z34.92 [id number] MD Ursula Khan [address],[place] [address] 05/15/2024 10:00:32 05/15/2024 10:55:21 condition affecting obstetrical care of mother [id number] O99.892 O99.282 Z3A.24 [id number] [facility] [address],[place] [address] 05/15/2024 10:02:26 05/15/2024 13:50:40 Routine care [id number] Z34.92 Hypothyroidism [id number] E03.9 [id number] Gerard Tello MD [facility] [address],[place] [address] 06/12/2024 09:01:55 06/12/2024 09:34:02 Hypothyroidism in [id number] E03.9 N83.202 Z3A.28 [id number] [facility] [address],[place] [address] 06/12/2024 09:05:06 06/12/2024 10:14:05 Routine care [id number] Z34.92 [id number] [facility] [address],[place] [address] 06/26/2024 09:39:30 06/26/2024 11:04:18 Uterine contractions present [id number] O80 [id number] Gerard Tello MD [facility] [address],[place] [address] 07/10/2024 15:24:49 07/10/2024 15:58:52 Hypothyroidism in [id number] E03.9 N83.202 Z3A.28 [id number] Gerard Tello MD [facility] [address],[place] [address] 07/10/2024 15:25:11 07/10/2024 16:46:05 Cyst of ovary in [id number] O34.80 O99.283 Z3A.32 [id number] [facility] [address],[place] [address] 07/10/2024 15:25:25 07/10/2024 17:02:04 Routine care [id number] Z34.92 [id number] [facility] [address],[place] [address] 1 07/17/2024 14:55:34 07/17/2024 16:30:40 Routine care [id number] Z34.92 [id number] Gerard Tello MD [place] [address],[place] [address] 1 07/17/2024 14:55:56 07/17/2024 16:07:52 Hypothyroidism in [id number] E03.9 N83.202 Z3A.28 [id number] Gerard Tello MD [facility] [address],[place] [address] 1 07/17/2024 14:56:12 07/17/2024 16:58:59 Hypothyroidism in [id number] O99.283 O34.80 Z3A.33 [id number] Gerard Tello MD [facility] [address],[place] [address] 1 07/24/2024 09:27:11 07/24/2024 10:02:49 Hypothyroidism in [id number] O99.283 O34.80 Z3A.34 [id number] Gerard Tello MD [facility] [address],[place] [address] 1 07/24/2024 09:27:42 07/24/2024 10:41:21 Hypothyroidism in [id number] O99.283 O34.80 Z3A.34 [id number] [facility] [address],[place] [address] 07/24/2024 09:28:40 07/24/2024 11:03:53 Routine care [id number] Z34.92 [id number] Gerard Tello MD [facility] [address],[place] [address] 1 07/31/2024 15:18:03 07/31/2024 16:33:38 Hypothyroidism in [id number] O99.283 O34.80 Z3A.34 [id number] Gerard Tello MD [facility] [address],[place] [address] 1 07/31/2024 15:18:26 07/31/2024 16:58:45 Hypothyroidism in [id number] O99.283 O34.80 Z3A.35 [id number] Yanely Smith [facility] [address],[place] [address] 1 07/31/2024 15:18:46 08/01/2024 10:42:15 Routine care [id number] Z34.92 [id number] Gerard Tello MD [place] [address],[place] [address] 1 08/07/2024 15:17:59 08/07/2024 16:13:58 Hypothyroidism in [id number] O99.283 O34.80 Z3A.35 [id number] Gerard Tello MD [facility] [address],[place] [address] 1 08/07/2024 15:19:31 08/07/2024 16:43:54 Hypothyroidism in [id number] O99.283 Z3A.36 [id number] Yanely Smith [facility] [address],[place] [address] 08/07/2024 15:20:04 08/10/2024 08:41:58 Routine care [id number] Z34.92 [id number] MD Ursula Khan [address],[place] [address] 08/14/2024 15:32:00 08/14/2024 16:10:16 Hypothyroidism in [id number] O99.283 Z3A.36 [id number] MD Ursula Khan [address],[place] [address] 08/14/2024 15:33:02 08/14/2024 16:35:55 Hypothyroidism in [id number] O99.283 Z3A.37 [id number] [facility] [address],[place] [address] 08/14/2024 15:34:15 08/14/2024 16:49:34 Gestation period, 37 weeks [id number] Z3A.37 [id number] Gerard Tello MD [place] [address],[place] [address] 08/21/2024 15:26:55 08/21/2024 16:10:41 Hypothyroidism in [id number] O99.283 Z3A.37 [id number] Yanely Smith [facility] [address],[place] [address] 08/21/2024 15:28:28 08/21/2024 16:35:59 Routine care [id number] Z34.92 [id number] Gerard Tello MD [place] [address],[place] [address] 1 09/22/2024 11:07:44 09/22/2024 11:40:49 Cyst of left ovary [id number] [id number] N83.202 [id number] Yanely Smith [facility] [address],[place] [address] 09/23/2024 11:04:08 09/23/2024 12:37:22 care [id number] Z39.0 continue vitamin Cyst of ovary [id number] N 83.[address] tello [id number] Gerard Tello MD [facility] [address],[place] [address] 09/25/2024 16:27:47 09/28/2024 05:40:41 Cyst of ovary [id number] N83.209 Z3A.15 33-year-ol d female with 12 cm left ovarian cyst. We agreed to perform laparoscop ic left ovarian cystectomy . She understand s the risks, benefits, and alternativ es. She has completed the informed consent process and is ready to proceed. I spent over 30 minutes on the patient's care. [id number] Gerard Tello MD [facility] [address],[place] [address] 10/22/2024 12:08:33 10/22/2024 13:44:25 Postoperative care [id number] Z48.89 This patient is a 33-year-ol d female who presents for postop follow-up. She had a left salpingo-o ophorectom y for large serous cystadenom a. She is recovering normally. Her incisions are clean dry and intact. There will be no surveillan ce per Gyne Onc at [facility]. [id number] Yanely Smith CNM [place] [address],[place] [address] 11/13/2024 10:00:51 11/13/2024 13:02:16 Vaginal irritation 605973379 N89.8 Vaginitis [id number] N76.0 [id number] Yanely Smith CNM [facility] [address],[place] [address] 11/19/2024 09:03:40 11/19/2024 10:27:57 Vaginal pain 52059736 R10.2 repaired, and treated, precaution s f/u one week [id number] Yanely Smith CNM [facility] [address],[place] [address] 11/27/2024 09:03:24 11/27/2024 09:50:46 Vaginal irritation 103256990 N89.8 f/u wwe or as needed [id number] Gerard Tello MD [facility] [address],[place] [address] 06/23/2025 09:23:13 06/23/2025 10:26:39 Uterine size for dates discrepancy [id number] O26.841 Z3A.01 [id number] Gerard Tello MD [place] [address],[place] [address] 07/09/2025 09:28:19 07/09/2025 10:07:32 Missed miscarriage 47613402 O02.1 Z3A.01 [id number] Yanely Smith CNM [place] [address],[place] [address] 07/09/2025 09:29:37 07/09/2025 10:30:18 Missed miscarriage 51650617 O02.1 [id number] plan hcg today and then early next weekprecau tions and educationt ext/ call over weekend if any questions or concerns Health Concerns Section Related Observation LastModified by Organization Detai ls LastModified Time None Recorded Concern Status LastModified by Organization Details LastModified Time None Recorded Advance Directives Directive N: Payers Insurance Date Sequence Insurance Name Policy Number Policy Kearns Covered Member ID Kearns Member ID Guarantor Name 07/08/2025 1 [facility] (PPO) [id number] Andreina Bean [id number] Andreina Alfonso 07/08/2025 1 [employer] Andreina Bean [id number] Andreina Alfonso 07/08/2025 1 [place] [id number] Andreina Alfonso [id number] Andreina Alfonso Notes Date Note Type Note Provider Name and Address Organization Details Recorded Time 11/19/2024 text/html ROS as noted in the HPI pt here to treat granuloma tissue after vaginal delivery, small piece of tissue growth across perineum, reviewed risks and benefits, consent signed, took percocet prior and had drive Yanely Smith CNM [address], [place], [address], [facility] 11/19/2024 09:59:33 11/27/2024 text/html ROS as noted in the HPI f/u from vaginal repair last week, doing well, no painno complaints [address], [place], [address], [facility] 11/27/2024 09:43:12 07/09/2025 text/html ROS as noted in the HPI pt here for follow up, early last week with FHR, today no growth and no FHR, discussed with pt. cramping now, no bleeding Yanely Smith, DONAL[address], [place], [address], [facility] 07/09/2025 10:28:16 OBGyn Episode Ob Episode Information Episode Created Date Number of Fetuses Patient Bloodtype Patient rh Status Prepregnancy Weight lbs Domestic Partner Domestic Partner Phone Father Name [employer] Technician Status 06/21/20 25 1 DELETED Fetus Data First Name Last Name Admitted to NICU Weight (g) Sex Living Outcome Pediatric Complications Fetus ID Race Codes Race Delivery Type [id number] Jamal Calculation Initial Jamal Date Initial Exam Date Initial Exam Provider Initial Ultrasound Date Last Menstrual Period Date Ultra Sound Weeks Gestation 06/21/2025 0 Eighteen To Twenty Week Jamal Update Ultra Sound Date Fundal Height At Umbil Quickening Date Ultra Sound Latest Weeks Gestation Final Jamal Confirmed By Final Jamal Confirmed Date Final Jamal Date Ultra Sound Latest Days Gestation 0 0 Menstrual History Last Menstrual Date Menses Monthly On Bcp Conception Prior Menses Frequency Hcg Plus Date Menarche Onset Age Delivery Information Delivery Date Delivery Type Labor Anesthesia Weeks Gestation Incision Type Labor Labor Length Hrs Delivered By Post Complications Tubal Sterilization Discharge Date Comments Discharge Information Feeding Method Contraceptive Method Maternal HG B and HCT Levels Ob Episode Information Episode Created Date Number of Fetuses Patient Bloodtype Patient rh Status Prepregnancy Weight lbs Domestic Partner Domestic Partner Phone Father Name [employer] Technician Status 02/14/20 24 1 A Positive 152 Tod Alfonso CLOSED Fetus Data First Name Last Name Admitted to NICU Weight (g) Sex Living Outcome Pediatric Complications Fetus ID Race Codes Race Delivery Type 3430.28 95 M true Full Term [id number] Vaginal Delivery Problems Problem Notes hx anxiety-no current medsPl an: Continue synthroid 125mcg daily, check thyroid function 6wks PP, further plan based on results from PP labwork, RTC in 05/2025. Problem Name Start Date End Date Resolution Snomed Code Not e Cyst of left ovary [id number] [id number] 11x8.6x9.7 Hypothyroidism in 058911043 synthroid 125mc g Thyroid nodule 691990054 Refer red to Endo - [facility] Al sent 06/01 - Pt did not schd appt with them r/t long waitlist. New referral sent to Dr. Tae Jamal Calculation Initial Jamal Date Initial Exam Date Initial Exam Provider Initial Ultrasound Date Last Menstrual Period Date Ultra Sound Weeks Gestation 08/29/2024 01/17/2024 01/17/2024 11/23/2023 7 Eighteen To Twenty Week Jamal Update Ultra Sound Date Fundal Height At Umbil Quickening Date Ultra Sound Latest Weeks Gestation Final Jamal Confirmed By Final Jamal Confirmed Date Final Jamal Date Ultra Sound Latest Days Gestation 02/14/20 24 12 08/29/20 24 3 Pre- Flowsheet Flowsheet Date 02/14/2024 Levine Score Blood Edema Fundus Height Fundus Units Glucose Ketones Leukocytes Nitrite Labor Signs Protein Cervic Dilation Cervic Effacement Cervic Station Type Weight in lbs Pre/Post Dialysis Refused BP Diastolic BP Location Tested BP Systolic BP Type Fetus Heart Rate Present Fetus Movement Comments Flowsheet Date 02/14/2024 Levine Score Blood Edema Fundus Height Fundus Units Glucose Ketones Leukocytes Nitrite Labor Signs Protein Cervic Dilation Cervic Effacement Cervic Station neg none none trace Type Weight in lbs Pre/Post Dialysis Refused Weight 153.768925526891 BP Diastolic BP Location Tested BP Systolic BP Type 81 122 Fetus Heart Rate Present Fetus Movement A No Comments Patient states that having s ome hip pain. rec chiropractor/yoga ball, ed precautions for cyst, will continue to monitor, stable from last useducation and precautions, labs done, nipt and carrier today f/u 4 weeks Flowsheet Date 03/13/2024 Levine Score Blood Edema Fundus Height Fundus Units Glucose Ketones Leukocytes Nitrite Labor Signs Protein Cervic Dilation Cervic Effacement Cervic Station Type Weight in lbs Pre/Post Dialysis Refused BP Diastolic BP Location Tested BP Systolic BP Type Fetus Heart Rate Present Fetus Movement Comments Flowsheet Date 03/13/2024 Levine Score Blood Edema Fundus Height Fundus Units Glucose Ketones Leukocytes Nitrite Labor Signs Protein Cervic Dilation Cervic Effacement Cervic Station neg none none trace Type Weight in lbs Pre/Post Dialysis Refused Weight 152.369336480905 BP Diastolic BP Location Tested BP Systolic BP Type 78 120 Fetus Heart Rate Present Fetus Movement A No Comments Patient states that having s ome cramping and nausea. reviewed education and precautions, ovarian cyst stable, precautions reviewed, reviewed us and will await dr. beers final reading. f/u 4 weeks anatomy scan Flowsheet Date 04/17/2024 Levine Score Blood Edema Fundus Height Fundus Units Glucose Ketones Leukocytes Nitrite Labor Signs Protein Cervic Dilation Cervic Effacement Cervic Station Type Weight in lbs Pre/Post Dialysis Refused BP Diastolic BP Location Tested BP Systolic BP Type Fetus Heart Rate Present Fetus Movement Comments Flowsheet Date 04/17/2024 Levine Score Blood Edema Fundus Height Fundus Units Glucose Ketones Leukocytes Nitrite Labor Signs Protein Cervic Dilation Cervic Effacement Cervic Station none Type Weight in lbs Pre/Post Dialysis Refused Weight 159.684503206280 BP Diastolic BP Location Tested BP Systolic BP Type 85 130 Fetus Heart Rate Present Fetus Movement A Yes Comments cyst stable, doing well +FM, anatomy complete, f/u 4 weeks. ok for travel precautions reviewed efw 65% Flowsheet Date 05/15/2024 Levine Score Blood Edema Fundus Height Fundus Units Glucose Ketones Leukocytes Nitrite Labor Signs Protein Cervic Dilation Cervic Effacement Cervic Station Type Weight in lbs Pre/Post Dialysis Refused BP Diastolic BP Location Tested BP Systolic BP Type Fetus Heart Rate Present Fetus Movement Comments Flowsheet Date 05/15/2024 Levine Score Blood Edema Fundus Height Fundus Units Glucose Ketones Leukocytes Nitrite Labor Signs Protein Cervic Dilation Cervic Effacement Cervic Station trace Type Weight in lbs Pre/Post Dialysis Refused Weight 165.749631076766 BP Diastolic BP Location Tested BP Systolic BP Type 87 132 Fetus Heart Rate Present Fetus Movement A Yes Comments Patient is having some BH co ntractions, discharge and swelling. plan GCT next visit, starting classes, discussed peds, +FM, precautions and education, feels fullness in thyroid, exam wnl, check labs consider US, reviewed US efw 64%, ovarian cyst stable Flowsheet Date 06/12/2024 Levine Score Blood Edema Fundus Height Fundus Units Glucose Ketones Leukocytes Nitrite Labor Signs Protein Cervic Dilation Cervic Effacement Cervic Station Type Weight in lbs Pre/Post Dialysis Refused BP Diastolic BP Location Tested BP Systolic BP Type Fetus Heart Rate Present Fetus Movement Comments Flowsheet Date 06/12/2024 Levine Score Blood Edema Fundus Height Fundus Units Glucose Ketones Leukocytes Nitrite Labor Signs Protein Cervic Dilation Cervic Effacement Cervic Station none 0cm 20% -2 Type Weight in lbs Pre/Post Dialysis Refused 168.361590307410 BP Diastolic BP Location Tested BP Systolic BP Type 77 122 Fetus Heart Rate Present Fetus Movement A Yes Comments Patient states that is havin g some BH contractions. cervix soft. PTL precautions, discussed possible steroids for lung development, education, ok for tdap and RSV, f/u 2 weeks, reviewed US and reviewed with dr. harper. f/u here in 2 weeks Flowsheet Date 06/26/2024 Levine Score Blood Edema Fundus Height Fundus Units Glucose Ketones Leukocytes Nitrite Labor Signs Protein Cervic Dilation Cervic Effacement Cervic Station trace Type Weight in lbs Pre/Post Dialysis Refused 172.089363822607 BP Diastolic BP Location Tested BP Systolic BP Type 84 128 Fetus Heart Rate Present Fetus Movement A Yes Comments Patient states that is havin g some BH contractions, pain, swelling. discussed se risks vs benefits, plan procardia xl 30 mg daily, f/u growth as scheduled. working from home and contractions are less working from home but when she having them more intense. finishing classes. education and precautions Flowsheet Date 07/10/2024 Levine Score Blood Edema Fundus Height Fundus Units Glucose Ketones Leukocytes Nitrite Labor Signs Protein Cervic Dilation Cervic Effacement Cervic Station Type Weight in lbs Pre/Post Dialysis Refused BP Diastolic BP Location Tested BP Systolic BP Type Fetus Heart Rate Present Fetus Movement Comments Flowsheet Date 07/10/2024 Levine Score Blood Edema Fundus Height Fundus Units Glucose Ketones Leukocytes Nitrite Labor Signs Protein Cervic Dilation Cervic Effacement Cervic Station Type Weight in lbs Pre/Post Dialysis Refused BP Diastolic BP Location Tested BP Systolic BP Type Fetus Heart Rate Present Fetus Movement Comments Flowsheet Date 07/10/2024 Levine Score Blood Edema Fundus Height Fundus Units Glucose Ketones Leukocytes Nitrite Labor Signs Protein Cervic Dilation Cervic Effacement Cervic Station none Type Weight in lbs Pre/Post Dialysis Refused 175.173471539545 BP Diastolic BP Location Tested BP Systolic BP Type 93 138 78 118 Fetus Heart Rate Present Fetus Movement A Yes Comments Patient is having BH contrac tions and swelling. doing well, reviewed us efw 84%, last labor class done, baby shower this weekend f/u one week Flowsheet Date 07/17/2024 Levine Score Blood Edema Fundus Height Fundus Units Glucose Ketones Leukocytes Nitrite Labor Signs Protein Cervic Dilation Cervic Effacement Cervic Station trace Type Weight in lbs Pre/Post Dialysis Refused Weight 178.269941725739 BP Diastolic BP Location Tested BP Systolic BP Type 80 124 Fetus Heart Rate Present Fetus Movement A Yes Comments Patient states that is havin g BH contractions and swelling. Education and precautions, PTL precautions NST R ok to call for preadmit rsv vaccine rec, f/u as scheduled Flowsheet Date 07/17/2024 Levine Score Blood Edema Fundus Height Fundus Units Glucose Ketones Leukocytes Nitrite Labor Signs Protein Cervic Dilation Cervic Effacement Cervic Station Type Weight in lbs Pre/Post Dialysis Refused BP Diastolic BP Location Tested BP Systolic BP Type Fetus Heart Rate Present Fetus Movement Comments Flowsheet Date 07/17/2024 Levine Score Blood Edema Fundus Height Fundus Units Glucose Ketones Leukocytes Nitrite Labor Signs Protein Cervic Dilation Cervic Effacement Cervic Station Type Weight in lbs Pre/Post Dialysis Refused BP Diastolic BP Location Tested BP Systolic BP Type Fetus Heart Rate Present Fetus Movement Comments Flowsheet Date 07/24/2024 Levine Score Blood Edema Fundus Height Fundus Units Glucose Ketones Leukocytes Nitrite Labor Signs Protein Cervic Dilation Cervic Effacement Cervic Station Type Weight in lbs Pre/Post Dialysis Refused BP Diastolic BP Location Tested BP Systolic BP Type Fetus Heart Rate Present Fetus Movement Comments Flowsheet Date 07/24/2024 Levine Score Blood Edema Fundus Height Fundus Units Glucose Ketones Leukocytes Nitrite Labor Signs Protein Cervic Dilation Cervic Effacement Cervic Station Type Weight in lbs Pre/Post Dialysis Refused BP Diastolic BP Location Tested BP Systolic BP Type Fetus Heart Rate Present Fetus Movement Comments Flowsheet Date 07/24/2024 Levine Score Blood Edema Fundus Height Fundus Units Glucose Ketones Leukocytes Nitrite Labor Signs Protein Cervic Dilation Cervic Effacement Cervic Station trace Type Weight in lbs Pre/Post Dialysis Refused Weight 179.031041779753 BP Diastolic BP Location Tested BP Systolic BP Type 71 115 Fetus Heart Rate Present Fetus Movement A Yes Comments Patient is having BH contrac tions, discharge and swelling. bpp 06/11 precautions and education, +FM, f/u next week Flowsheet Date 07/31/2024 Levine Score Blood Edema Fundus Height Fundus Units Glucose Ketones Leukocytes Nitrite Labor Signs Protein Cervic Dilation Cervic Effacement Cervic Station Type Weight in lbs Pre/Post Dialysis Refused BP Diastolic BP Location Tested BP Systolic BP Type Fetus Heart Rate Present Fetus Movement Comments Flowsheet Date 07/31/2024 Levine Score Blood Edema Fundus Height Fundus Units Glucose Ketones Leukocytes Nitrite Labor Signs Protein Cervic Dilation Cervic Effacement Cervic Station Type Weight in lbs Pre/Post Dialysis Refused BP Diastolic BP Location Tested BP Systolic BP Type Fetus Heart Rate Present Fetus Movement Comments Flowsheet Date 07/31/2024 Levine Score Blood Edema Fundus Height Fundus Units Glucose Ketones Leukocytes Nitrite Labor Signs Protein Cervic Dilation Cervic Effacement Cervic Station Type Weight in lbs Pre/Post Dialysis Refused 182.329136748500 BP Diastolic BP Location Tested BP Systolic BP Type 82 118 Fetus Heart Rate Present Fetus Movement A Yes Comments Patient states that having c ontractions cervix outer os 1.5 funnels in about 50% effaced, gbs collected bpp 08/13, education and precautions, preadmit complete f/u one week Flowsheet Date 08/07/2024 Levine Score Blood Edema Fundus Height Fundus Units Glucose Ketones Leukocytes Nitrite Labor Signs Protein Cervic Dilation Cervic Effacement Cervic Station Type Weight in lbs Pre/Post Dialysis Refused BP Diastolic BP Location Tested BP Systolic BP Type Fetus Heart Rate Present Fetus Movement Comments Flowsheet Date 08/07/2024 Levine Score Blood Edema Fundus Height Fundus Units Glucose Ketones Leukocytes Nitrite Labor Signs Protein Cervic Dilation Cervic Effacement Cervic Station Type Weight in lbs Pre/Post Dialysis Refused BP Diastolic BP Location Tested BP Systolic BP Type Fetus Heart Rate Present Fetus Movement Comments Flowsheet Date 08/07/2024 Levine Score Blood Edema Fundus Height Fundus Units Glucose Ketones Leukocytes Nitrite Labor Signs Protein Cervic Dilation Cervic Effacement Cervic Station trace 1cm 50% -2 Type Weight in lbs Pre/Post Dialysis Refused 185.184526843918 BP Diastolic BP Location Tested BP Systolic BP Type 95 142 Fetus Heart Rate Present Fetus Movement A Yes Comments Patient is having some BH co ntractions and swelling. NST R, +FM, f/u one week, precautions and education Flowsheet Date 08/14/2024 Levine Score Blood Edema Fundus Height Fundus Units Glucose Ketones Leukocytes Nitrite Labor Signs Protein Cervic Dilation Cervic Effacement Cervic Station Type Weight in lbs Pre/Post Dialysis Refused BP Diastolic BP Location Tested BP Systolic BP Type Fetus Heart Rate Present Fetus Movement Comments Flowsheet Date 08/14/2024 Levine Score Blood Edema Fundus Height Fundus Units Glucose Ketones Leukocytes Nitrite Labor Signs Protein Cervic Dilation Cervic Effacement Cervic Station Type Weight in lbs Pre/Post Dialysis Refused BP Diastolic BP Location Tested BP Systolic BP Type Fetus Heart Rate Present Fetus Movement Comments Flowsheet Date 08/14/2024 Levine Score Blood Edema Fundus Height Fundus Units Glucose Ketones Leukocytes Nitrite Labor Signs Protein Cervic Dilation Cervic Effacement Cervic Station none 1cm 60% -2 Type Weight in lbs Pre/Post Dialysis Refused 186.414450971191 BP Diastolic BP Location Tested BP Systolic BP Type 86 133 Fetus Heart Rate Present Fetus Movement A Yes Comments Patient is having some BH co ntractions and discharge. cervix soft, oligohydramnios 2x2 pocket, discussed IOL at 39 weeks plan 08/23 at 1700 precautions reviewed +FM Flowsheet Date 08/21/2024 Levine Score Blood Edema Fundus Height Fundus Units Glucose Ketones Leukocytes Nitrite Labor Signs Protein Cervic Dilation Cervic Effacement Cervic Station Type Weight in lbs Pre/Post Dialysis Refused BP Diastolic BP Location Tested BP Systolic BP Type Fetus Heart Rate Present Fetus Movement Comments Flowsheet Date 08/21/2024 Levine Score Blood Edema Fundus Height Fundus Units Glucose Ketones Leukocytes Nitrite Labor Signs Protein Cervic Dilation Cervic Effacement Cervic Station Type Weight in lbs Pre/Post Dialysis Refused BP Diastolic BP Location Tested BP Systolic BP Type Fetus Heart Rate Present Fetus Movement Comments Flowsheet Date 08/21/2024 Levine Score Blood Edema Fundus Height Fundus Units Glucose Ketones Leukocytes Nitrite Labor Signs Protein Cervic Dilation Cervic Effacement Cervic Station Type Weight in lbs Pre/Post Dialysis Refused [id number] BP Diastolic BP Location Tested BP Systolic BP Type 99 151 90 152 Fetus Heart Rate Present Fetus Movement A Yes Comments Menstrual History Last Menstrual Date Menses Monthly On Bcp Conception Prior Menses Frequency Hcg Plus Date Menarche Onset Age 0111/23/2023 Genetic Screening And Infection History Question Response Note Mental Retardation/Autism false Patient's Age Will Be 35 Years Or Older At Estim ated Date of Delivery false Thalassemia (French, Kiswahili, Mediterranean, Or Background): MCV < 80 false Neural Tube Defect (Meningomyelocele, Spina Bifi da, Or Anencephaly) false Congenital Heart Defect false Down Syndrome false Mahesh-Sachs (eg, Evangelical, Cajun, Tajik-Bosque) f alse Sen Disease false Sickle Cell Disease Or Trait () false Hemophilia Or Other Blood Disorders false Muscular Dystrophy false Cystic Fibrosis false Ly's Chorea false Intellectual Disability/Autism false If Yes, Was Person Tested For Fragile X? false Other Inherited Genetic Or Chromosomal Disorder false Maternal Metabolic Disorder (eg, Type 1 Diabetes , PKU) false Patient Or Baby's Father Had A Child With Defects Not Listed Above false Recurrent Loss, Or A Stillbirth false Medications (including Suppl ements, Vitamins, Herbs, OTC Drugs), Illicit/Recreational Drugs, Alcohol true If Yes, Agent(s) And Strength/Dosage false Any Other Genetic History false Live With Someone With TB Or Exposed To TB false Patient Or Partner Has History Of Genital Herpes false Rash Or Viral Illness Since Last Menstrual Perio d false History Of STD, Gonorrhea, Chlamydia, HPV, Syphi lis false Other Infection History false History of HIV false History of Hepatitis false Prior GBS-infected child false Hemoglobinopathy Or Carrier false Other Structural Defect false Recent Travel History Outside of Country false Delivery Information Delivery Date Delivery Type Labor Anesthesia Weeks Gestation Incision Type Labor Labor Length Hrs Delivered By Post Complications Tubal Sterilization Discharge Date Comments 4 Induce d Regional-Ep idural 39 false LuisYanely carolina CNM Cyst of left ovary,Hyp othyroidi sm in ,Thyroid nodule, pre-e, ghtn, Discharge Information Feeding Method Contraceptive Method Maternal HG B and HCT Levels
[2025-07-29] MEDS: fentaNYL CITRATE INJ (*CRX) 100 MCG/2 ML VIAL 25 MCG IV PUSH (08:15)
== END 2025-07-29 09:21 | disposition home or self-care (01) ==
LOC: ANHED 06:03 → ANHSURGERY 07:54
PROVIDERS: Emergency Provider Student in an Organized Health Care Education/Training Program; PCP Nurse Practitioner Family; Visit Provider Obstetrics & Gynecology
PROC: (CPT 59812; principal; 2025-07-29 06:30)
DX: O03.4 Incomplete spontaneous abortion without complication (principal); E03.9 Hypothyroidism, unspecified
CPT/HCPCS: 59812; 36415; 36430; 76801; 76817; 80053; 82948; 84702; 85025; 85461; 85610; 85730; 86850; 86880; 86900; 86901; 86902; 86920; 86922; 88305; 96361; 96374; 96375; 99285; J1100; J1885; J2003; J2250; J2371; J2405; J2704; J3010; J7030; J7120; P9016

== ENCOUNTER 2025-08-17 11:45 | Outpatient (CLI) | payer BC, SELFPAY ==
--- NOTE | ~2025-08-17 | US_ITS ---
EXAMINATION: US FNA w image guidance DATE: 08/17/2025 12:39 INDICATION: Nontoxic single thyroid nodule TECHNIQUE: A time-out was performed to verify the patient's name, date of , and procedure to be performed. The procedure and its benefits and risks were discussed with the patient. Risks specifically discussed included bleeding and infection. The patient understood the risks and agreed to proceed. The neck was prepped and draped in the usual sterile manner. 3 mL 1% lidocaine was used for local anesthesia. 5 passes were made with a 25G needle into the lesion. It is unclear whether the very hypoechoic nodule might in fact be cystic and therefore an additional pass was made with a 22G needle which yielded no evident fluid on attempted aspiration. Appropriate needle location was documented with continuous sonographic guidance. A sterile bandage was applied. There were no immediate complications. FINDINGS: Grayscale ultrasound images demonstrate biopsy needles advanced into the 1.5 cm very hypoechoic right thyroid nodule of concern. IMPRESSION: 1. Successful ultrasound-guided fine needle aspiration of the 1.5 cm very hypoechoic right thyroid nodule of concern. Reviewed, dictated and finalized at location A. IMPRESSION: 1. Successful ultrasound-guided fine needle aspiration of the 1.5 cm very hypo echoic right thyroid nodule of concern.
--- NOTE | 2025-08-17 12:34 | CY_PTH ---
PATIENT: Andreina Alfonso LOC: [facility] U#:[id number] AGE/SX: 34/F ROOM: RE08/17/[address]: Qasim Garcia MD : [id number] BED: DIS: 08/17/2025 SPEC #: [id number] RECD: 08/17/25 12:40 STATUS: CASS REBernabe #: [id number] YAKOV: 08/17/25 12:[address]: Qasim Garcia DEPT: [facility] Cytology RECD BY: Genesis Elliott ENTERED: 08/17/25 12:41 SP TYPE: Cytology OTHR DR: Linda Juan APRN Tissues: A - FNA Thyroid Procedures: Hematoxylin and Eosin Stain Cell Block Fine Needle Aspiration Evaluation Fine Needle Aspiration Pathologist
--- OUTSIDE RECORDS SUMMARY | 2025-08-17 13:49 | XMS_ITS | Clinical Summary ---
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
== END 2025-08-17 11:46 | disposition home or self-care (01) ==
PROVIDERS: PCP Nurse Practitioner Family; Visit Provider Family Medicine
DX: E04.1 Nontoxic single thyroid nodule (principal)
CPT/HCPCS: 10005; 88172; 88173; 88305